=== PATIENT | female | born 1955 | race Caucasian/White ===

== ENCOUNTER 2019-05-20 00:09 | Emergency (ER) | payer OTHER, SELFPAY ==
[2019-05-20] VITALS (7 sets, daily range): BP systolic 98–140; BP diastolic 62–75; PULSE 74–100; RESP 16–18; TEMP 36.6–37.5; O2SAT 97–100
--- NOTE | 2019-05-20 02:21 | ED.NAVMDI ---
HPI - Nausea/Vomiting/Diarrhea General Chief complaint: Nausea/Vomiting/Diarrhea Stated complaint: VOMITING. Time Seen by Provider: 05/20/19 02:02 Source: patient and family Mode of arrival: ambulatory Limitations: no limitations History of Present Illness HPI Narrative: Patient presented for evaluation of vomiting. Patient reports nausea and vomiting over the past 24 to 48 hours. She denies any head, chest or abdominal pain. She does report cough, denies fever. Patient states she has been in contact with many people who were sick at her office with influenza. Patient also reports malodorous urine with frequency, denies dysuria, does report dark-colored urine. She denies abdominal pain or flank pain. Patient denies numbness, reports she feels mildly weak, but reports she has been walking normally. Related Data Home Medications Medication Instructions Recorded Confirmed cefdinir 300 mg capsule 300 mg PO BID cap 04/11/19 naproxen sodium 220 mg capsule 440 mg PO Q12H PRN cap 04/11/19 pravastatin 40 mg tablet 40 mg PO DAILY 04/11/19 ranitidine HCl 150 mg tablet 150 mg PO BID tablet 04/11/19 zolmitriptan 5 mg tablet 5 mg PO ONCE 04/11/19 Allergies Allergy/AdvReac Type Severity Reaction Status Date / Time nitrofurantoin Allergy Unknown Verified 09/23/17 11:31 Sulfa (Sulfonamide Allergy Unknown Unknown Verified 09/23/17 11:30 Antibiotics) Review of Systems Review of Systems: Narrative: CONSTITUTIONAL: Denies fever, chills, or sweats. EYES: Denies visual changes, redness, or discharge. ENT: Denies rhinorrhea, reports congestion CARDIOVASCULAR: Denies chest pain, palpitations, or edema. RESPIRATORY:Reports cough, denies dyspnea GASTROINTESTINAL: Denies abdominal pain, reports nausea and vomiting, denies diarrhea GENITOURINARY: Reports frequency, reports malodorous urine SKIN: Denies rash or itching. MUSCULOSKELETAL: Denies back pain, joint pain, or myalgia. NEUROLOGIC: Denies headache, numbness, or weakness. All systems reviewed & are unremarkable except as noted in HPI and below [facility] Past Medical History Medical History (Updated 05/20/19 @ 04:39 by Manisha Sutton MD) Colitis GERD (gastroesophageal reflux disease) Heart murmur History of radiation therapy Hyperlipidemia Hypothyroid IBS (irritable bowel syndrome) Post-menopausal Skin cancer Surgical History Surgical History (Updated 05/20/19 @ 02:23 by Dinorah Garrido) H/O local excision of skin lesion Right foot, nose History of tonsillectomy Family History Family History Mother Hypertension Social History Social History (Updated 05/20/19 @ 02:25 by Dinorah Garrido) Smoking packs per day: 0.5 Smoking cigarettes per day: 10.0 Years smoked: 10 Smoking pack-years: 5.00 Smoking status: Former smoker Second hand tobacco smoke exposure: No Smoking end date: 04/12/90 Alcohol intake: current Gender identity (if verbalized by the patient): Female Exam Narrative: Exam Narrative: GENERAL: Well-appearing, well-nourished, and in no acute distress. HEAD: Normocephalic, atraumatic. EYES: PERRLA and EOMI. ENT: Nares clear, no rhinorrhea or epistaxis. Mucous membranes moist. NECK: Supple. CHEST: Clear to auscultation. No respiratory distress. HEART: Regular rate and rhythm. No murmur heard. Normal peripheral pulses. ABDOMEN: Soft, nontender, nondistended, normal active bowel sounds. EXTREMITIES: Normal range of motion. No edema. SKIN: Warm, dry, no rash. NEURO: No focal deficits. Alert and oriented X3. Course Course Emergency Course: Patient presents for evaluation of nausea and vomiting. No pain to speak of on exam. Vital signs are stable. Patient is orthostatic positive. She is positive for influenza A, urinalysis is also reflective of UTI. Patient without flank pain, no history of nephrolithiasis. I doubt pyelonephritis based on clinical symptoms. Patient was rehydrated wi
[2019-05-20 03:10] LABS: Basophils Percent Auto 0.2 % (0.2-1.2); Hematocrit 37.2 % (37.0-47.0); Hemoglobin 12.3 g/dL (12.0-15.0); Immature Granulocyte Absolute 0.01 K/mm3 (0.00-0.031); Immature Granulocyte Percent A 0.2 % (0-0.5); Lymphocytes Absolute Auto 0.91 K/mm3 (0.9-3.2); Lymphocytes Percent Auto 17.5 % (18.3-44.2); Mean Corpuscular HGB Conc 33.1 g/dl (32-36); Mean Corpuscular Hemoglobin 28.8 pg (26-34); Mean Corpuscular Volume 87.1 fl (80-100); Mean Platelet Volume 10.5 fl (7.4-10.4); Monocytes Absolute Auto 0.4 K/mm3 (0.1-0.6); Monocytes Percent Auto 8.5 % (2.6-8.5); Neutrophils Absolute Auto 3.8 K/mm3 (1.3-6.7); Neutrophils Percent Auto 73.6 % (45.5-73.1); Platelet Count Result 306 k/mm3 (150-375); Red Blood Count 4.27 M/mm3 (4.2-5.4); Red Cell Distribution Width 13.1 % (11.5-14.5); White Blood Count 5.2 K/mm3 (4.5-10.0)
[2019-05-20 03:23] LABS: Alanine Aminotransferase 28 U/L (4-35); Albumin Level 4.1 g/dL (3.5-5.1); Alkaline Phosphatase 77 U/L (38-126); Aspartate Amino Transferase 32 U/L (14-36); Bilirubin,Total 0.6 mg/dL (0.2-1.3); Blood Urea Nitrogen 12 mg/dL (7-17); Calcium 9.5 mg/dL (8.4-10.2); Carbon Dioxide 26 mmol/L (22-30); Chloride 91 mmol/L (98-107); Estimated CRCL calculation 56 ml/min; Estimated Glomerular Filt Rate > 60; Glucose 105 mg/dL (65-105); Lipase 57 U/L (23-300); Potassium 4.3 mmol/L (3.4-5.0); Sodium 131 mmol/L (137-145)
[2019-05-20 03:40] LABS: Add Urine Microscopic? YES; Appearance Urine Cloudy (Clear); Bacteria Urine Trace /hpf; Bilirubin Urine Negative (Negative); Blood Urine 1+ (Negative); Color Urine Yellow (Yellow); Glucose Urine UA Negative (Negative); Ketones Urine 2+ mg/dL (Negative); Leukocyte Esterase Ur 3+ LEU/UL (Negative); Mucus Urine Rare /lpf; Nitrate Urine Negative (Negative); Protein Urine 1+ mg/dL (Negative); Specific Grav Ur 1.014 (1.001-1.035); Squamous Epithelial Cell Urine Few /hpf (Few); Urobilinogen Urine Negative mg/dL (<2.0); WBC Urine >75 /hpf
[2019-05-20] MEDS: SODIUM CHLORIDE 0.9% IV 2,000 ML 999 ML (04:38)
[2019-05-20] MEDS: ONDANSETRON INJ 4 MG/2 ML VIAL IV PUSH (04:39)
== END 2019-05-20 06:35 | disposition home or self-care (01) ==
PROVIDERS: Emergency Provider Emergency Medicine; PCP Family Medicine
DX: J10.1 Influenza due to other identified influenza virus with other respiratory manifestations (principal); N39.0 Urinary tract infection, site not specified; E86.0 Dehydration; K21.9 Gastro-esophageal reflux disease without esophagitis; E78.5 Hyperlipidemia, unspecified; E03.9 Hypothyroidism, unspecified; K58.9 Irritable bowel syndrome, unspecified; Z85.828 Personal history of other malignant neoplasm of skin; Z92.3 Personal history of irradiation; Z87.891 Personal history of nicotine dependence
CPT/HCPCS: 36415; 80053; 81001; 83690; 85025; 87077; 87086; 87088; 87186; 87804; 96361; 96365; 96375; 99284; J0696; J2405; J7030

== ENCOUNTER → 2020-02-23 11:07 | Outpatient (CLI) | payer OTHER, SELFPAY ==
--- NOTE | ~2020-02-23 | DEXA_ITS ---
Bone Density Report Name: Sangeetha Beth Age: 64 Sex: Female Ethnicity: White Date of : 1955 Indication: postmenopausal; screening for osteoporosis; parental hip fracture; Referring Provider: Melissa Bragg Study: Bone densitometry was performed. Exam Date: February 23, 2020 Accession number: [id number] Bone Density: Region BMD T-score Z-score Classification AP Spine (L1-L4) 0.917 -1.2 0.6 Osteopenia Femoral Neck (Left) 0.665 -1.7 -0.2 Osteopenia Total Hip (Left) 0.870 -0.6 0.6 Normal Femoral Neck (Right) 0.685 -1.5 0.0 Osteopenia Total Hip (Right) 0.819 -1.0 0.2 Normal Total Hip Mean 0.845 -0.8 0.4 Normal World Health Organization criteria for BMD impression classify patients as: Normal (T-score at or above -1.0), Osteopenia (T-score between -1.0 and -2.5), or Osteoporosis (T-score at or below -2.5). 10-year Fracture Risk(1): Major Osteoporotic Fracture 18% Hip Fracture 1.1% Reported Risk Factors: [place] (), Neck BMD=0.665, BMI=25.3, parental fracture (1) FRAX(R) Version 3.08. Fracture probability calculated for an untreated patient. Fracture probability may be lower if the patient has received treatment. Previous Exams: Region Exam Age BMD T-score BMD Change BMD Change Date g/cm2 vs Baseline vs Previous AP Spine(L1-L4) 02/23/2020 64 0.917 -1.2 -0.106* -0.036* 08/21/2013 58 0.952 -0.9 -0.070* 0.007 09/19/2007 52 0.945 -0.9 -0.078* -0.078* 11/27/2005 50 1.023 -0.2 Total Hip(Left) 02/23/2020 64 0.870 -0.6 -0.157* 0.023 08/21/2013 58 0.847 -0.8 -0.180* -0.080* 09/19/2007 52 0.927 -0.1 -0.100* -0.100* 11/27/2005 50 1.027 0.7 Total Hip(Right) 02/23/2020 64 0.819 -1.0 -0.170* -0.009 08/21/2013 58 0.828 -0.9 -0.160* -0.084* 09/19/2007 52 0.911 -0.3 -0.077* -0.077* 11/27/2005 50 0.988 0.4 *Denotes significance at 95% confidence level, LSC for AP Spine = 0.022 g/cm2, LSC for Total Hip = 0.027 g/cm2 Clinical Information Provided by Patient: Parent has had a hip fracture Has used the following medications: Vitamin D, LEVOTHYROXIN Patient maximum height was 65 Menopause Age: 49 No regular weight bearing exercise Drinks caffeinated beverages Onset of menses at age 12 Number of children 2 Impression: The chanell
--- NOTE | ~2020-02-23 | MM_ITS ---
EXAMINATION: MM screening [facility] BI w yuly HISTORY: Screening mammogram TECHNIQUE: Craniocaudal and mediolateral oblique 3-D tomosynthesis images were obtained and synthetic 2-D images were generated. CAD analysis was submitted and interpreted. COMPARISON: 05/01/1915, 08/21/2013 BREAST PARENCHYMAL COMPOSITION: There are scattered areas of fibroglandular density. FINDINGS: There is no evidence of suspicious mass, calcification, or architectural distortion to sugg est malignancy in either breast. There has been no suspicious interval change. IMPRESSION: 1. No mammographic evidence of malignancy. 2. Recommend routine screening mammography in one year. BI-RADS Category 1: Negative Reviewed, dictated and finalized at location A. ERCIAL LOAN REVIEWER
== END ==
PROVIDERS: Visit Provider Family Medicine
DX: Z12.31 Encounter for screening mammogram for malignant neoplasm of breast (principal); Z78.0 Asymptomatic menopausal state; M85.88 Other specified disorders of bone density and structure, other site; M85.852 Other specified disorders of bone density and structure, left thigh; M85.851 Other specified disorders of bone density and structure, right thigh
CPT/HCPCS: 77063; 77067; 77080

== ENCOUNTER → 2021-05-28 11:18 | Outpatient (CLI) | payer OTHER, SELFPAY ==
--- NOTE | ~2021-05-28 | XR_ITS ---
XR foot RT 2V DATE: 05/28/2021 11:52 INDICATION: Right foot pain TECHNIQUE: AP and lateral views COMPARISON: None FINDINGS: There is hallux valgus and bunion deformity. No fracture or dislocation, periosteal reaction or bone destruction. No erosive change. Prominent plantar calcaneal enthesopathy without erosive change or periostitis. IMPRESSION: Hallux valgus and bunion deformity Plantar calcaneal enthesopathy Reviewed, dictated and finalized at location B. GING CRANE OPERATOR
--- NOTE | ~2021-05-28 | XR_ITS ---
XR ankle RT 2V DATE: 05/28/2021 11:52 INDICATION: Right ankle pain TECHNIQUE: AP and lateral views COMPARISON: None FINDINGS: There is prominent plantar calcaneal enthesopathy without erosive change or periostitis. No fracture or dislocation of the ankle or disruption of the ankle mortise. No periosteal reaction or bone destruction. IMPRESSION: Calcaneal enthesopathy Reviewed, dictated and finalized at location B. TARY INSPECTOR IMPRESSION: Calcaneal enthesopathy
== END ==
PROVIDERS: PCP Physician Assistant; Visit Provider Physician Assistant
DX: M77.31 Calcaneal spur, right foot (principal); M20.11 Hallux valgus (acquired), right foot; M21.611 Bunion of right foot
CPT/HCPCS: 73600; 73620

== ENCOUNTER → 2021-11-04 14:58 | Outpatient (CLI) | payer OTHER, SELFPAY ==
--- NOTE | ~2021-11-04 | MM_ITS ---
EXAMINATION: MM screening [facility] BI w yuly HISTORY: Screening mammogram TECHNIQUE: Craniocaudal and mediolateral oblique 3-D tomosynthesis images were obtained and synthetic 2-D images were generated. Bilateral rotated lateral CC views. CAD analysis was submitted and interp reted. COMPARISON: 02/23/2020, 05/10/2015, 08/21/2013 bilateral screening mammogram examinations BREAST PARENCHYMAL COMPOSITION: There are scattered areas of fibroglandular density. FINDINGS: There is no evidence of suspicious mass, calcification, or architectural distortion to sugg est malignancy in either breast. There has been no suspicious interval change. IMPRESSION: 1. No mammographic evidence of malignancy. 2. Recommend routine screening mammography in one year. BI-RADS Category 1: Negative Reviewed, dictated and finalized at location A.
== END ==
PROVIDERS: PCP Family Medicine; Visit Provider Physician Assistant
DX: Z12.31 Encounter for screening mammogram for malignant neoplasm of breast (principal)
CPT/HCPCS: 77063; 77067

== ENCOUNTER 2021-12-06 09:58 | Outpatient (CLI) | payer OTHER, SELFPAY ==
--- NOTE | 2021-12-06 10:15 | ECG_ITS ---
Measurements Intervals [place] Rate: 57 P: 21 [place]: 164 QRS: 24 QRSD: 99 T: 30 QT: 392 QTc: 385 Interpretive Statements SINUS BRADYCARDIA POSSIBLE INFERIOR MYOCARDIAL INFARCTION, AGE UNDETERMINED ABNORMAL ECG NO PREVIOUS ECG AVAILABLE FOR COMPARISON Electronically Signed On 12-06-2021 17:21:46 CDT by Alex Rodriguez M.D.
== END 2021-12-06 09:59 | disposition home or self-care (01) ==
LOC: ANHCARD 10:00
PROVIDERS: PCP Family Medicine; Visit Provider Physician Assistant Medical
DX: R42 Dizziness and giddiness (principal); R00.1 Bradycardia, unspecified
CPT/HCPCS: 93005

== ENCOUNTER 2022-05-20 16:21 | Outpatient (CLI) | payer OTHER, SELFPAY ==
--- NOTE | ~2022-05-20 | DEXA_ITS ---
Bone Density Report Name: BETHANY FINN Age: 67 Sex: Female Ethnicity: White Date of : 1955 Indication: osteopenia; hyperparathyroidism; parental hip fracture; height loss; prior fracture; postmenopausal Referring Provider: SAMEERA SILVER Study: Bone densitometry was performed. Exam Date: May 20, 2022 Accession number: [id number] Bone Density: Region BMD T-score Z-score Classification AP Spine (L1-L4) 0.902 -1.3 0.6 Osteopenia Femoral Neck (Left) 0.680 -1.5 0.1 Osteopenia Total Hip (Left) 0.835 -0.9 0.5 Normal Femoral Neck (Right) 0.680 -1.5 0.1 Osteopenia Total Hip (Right) 0.827 -0.9 0.4 Normal Total Hip Mean 0.831 -0.9 0.5 Normal World Health Organization criteria for BMD impression classify patients as: Normal (T-score at or above -1.0), Osteopenia (T-score between -1.0 and -2.5), or Osteoporosis (T-score at or below -2.5). 10-year Fracture Risk(1): Major Osteoporotic Fracture 26% Hip Fracture 2.5% Reported Risk Factors: [place] (), Neck BMD=0.680, BMI=27.9, previous fracture, parental fracture (1) FRAX(R) Version 3.08. Fracture probability calculated for an untreated patient. Fracture probability may be lower if the patient has received treatment. Previous Exams: Region Exam Age BMD T-score BMD Change BMD Change Date g/cm2 vs Baseline vs Previous AP Spine(L1-L4) 05/20/2022 67 0.902 -1.3 -0.121* -0.015 02/23/2020 64 0.917 -1.2 -0.106* -0.036* 08/21/2013 58 0.952 -0.9 -0.070* 0.007 09/19/2007 52 0.945 -0.9 -0.078* -0.078* 11/27/2005 50 1.023 -0.2 Total Hip(Left) 05/20/2022 67 0.835 -0.9 -0.192* -0.035* 02/23/2020 64 0.870 -0.6 -0.157* 0.023 08/21/2013 58 0.847 -0.8 -0.180* -0.080* 09/19/2007 52 0.927 -0.1 -0.100* -0.100* 11/27/2005 50 1.027 0.7 Total Hip(Right) 05/20/2022 67 0.827 -0.9 -0.161* 0.009 02/23/2020 64 0.819 -1.0 -0.170* -0.009 08/21/2013 58 0.828 -0.9 -0.160* -0.084* 09/19/2007 52 0.911 -0.3 -0.077* -0.077* 11/27/2005 50 0.988 0.4 *Denotes significance at 95% confidence level, LSC for AP Spine = 0.022 g/cm2, LSC for Total Hip = 0.027 g/cm2 Clinical Information Provided by Patient: Has had a low trauma fracture Parent has had a hip fracture Has used the following medications: Vitami
== END 2022-05-20 16:22 ==
LOC: MICIMG 16:22
PROVIDERS: PCP Family Medicine; Visit Provider Physician Assistant Medical
DX: M85.88 Other specified disorders of bone density and structure, other site (principal); M85.852 Other specified disorders of bone density and structure, left thigh; M85.851 Other specified disorders of bone density and structure, right thigh
CPT/HCPCS: 77080

== ENCOUNTER → 2022-11-27 07:47 | Outpatient (CLI) | payer OTHER, SELFPAY ==
--- NOTE | ~2022-11-27 | US_ITS ---
EXAMINATION: US renal BI DATE: 11/27/2022 08:14 INDICATION: Acute renal failure TECHNIQUE: Multiple ultrasound grayscale images of the kidneys were obtained. COMPARISON: 08/14/2018 FINDINGS: The right kidney measures 9.6 x 4.7 x 4.8 cm. The left kidney measures 7.9 x 2.9 x 3.7 cm. The kidney s demonstrate normal echogenicity. There is no hydronephrosis in either kidney. No stones identified . The bladder is normal. IMPRESSION: 1. Normal kidneys without hydronephrosis. Reviewed, dictated and finalized at location A.
== END ==
PROVIDERS: PCP Family Medicine; Visit Provider Physician Assistant Medical
DX: N17.9 Acute kidney failure, unspecified (principal)
CPT/HCPCS: 76775

== ENCOUNTER → 2023-06-09 14:51 | Outpatient (CLI) | payer OTHER, SELFPAY ==
--- NOTE | ~2023-06-09 | MM_ITS ---
EXAMINATION: MM screening [facility] BI w yuly HISTORY: Screening TECHNIQUE: Craniocaudal and mediolateral oblique 3-D tomosynthesis images were obtained and synthetic 2-D images were generated. CAD analysis was submitted and interpreted. COMPARISON: Comparison to multiple prior studies sequentially, with oldest reviewed study dated 08/21. BREAST PARENCHYMAL COMPOSITION: Not dense: There are scattered areas of fibroglandular density. FINDINGS: Breast asymmetries are stable. There is no evidence of suspicious mass, calcification, or a rchitectural distortion to suggest malignancy in either breast. There has been no suspicious interval change. IMPRESSION: 1. No mammographic evidence of malignancy. 2. Recommend routine screening mammography in one year. BI-RADS Category 1: Negative Reviewed, dictated and finalized at location A. RICT [employer] DISTRICT OFFICE DIRECTOR
== END ==
PROVIDERS: PCP Physician Assistant Medical; Visit Provider Physician Assistant Medical
DX: Z12.31 Encounter for screening mammogram for malignant neoplasm of breast (principal)
CPT/HCPCS: 77063; 77067

== ENCOUNTER 2023-12-22 15:33 | Outpatient (CLI) | payer OTHER, SELFPAY ==
[2023-12-22 16:20] LABS: Influenza A QL RT-PCR Negative (Negative); Influenza B QL RT-PCR Negative (Negative); RSV RNA, RT-PCR Negative (Negative); SARS-CoV-2 RNA PCR Positive (Negative)
== END 2023-12-22 15:34 | disposition home or self-care (01) ==
LOC: ANHLAB 15:35
PROVIDERS: PCP Family Medicine; Visit Provider Family Medicine
DX: J06.9 Acute upper respiratory infection, unspecified (principal); U07.1 COVID-19
CPT/HCPCS: 87637

== ENCOUNTER 2024-08-07 12:08 | Outpatient (CLI) | payer MEDICARE, SELFPAY ==
--- NOTE | ~2024-08-07 | DEXA_ITS ---
Bone Density Report Name: BETHANY FINN Age: 69 Sex: Female Ethnicity: White Date of : 1955 Indication: postmenopausal; screening for osteoporosis; parental hip fracture; height loss; Referring Provider: EDWIN PATTERSON Study: Bone densitometry was performed. Exam Date: August 07, 2024 Accession number: [id number] Bone Density: Region BMD T-score Z-score Classification AP Spine(L1-L4) 0.906 -1.3 0.8 Osteopenia Femoral Neck (Left) 0.690 -1.4 0.3 Osteopenia Total Hip (Left) 0.889 -0.4 1.0 Normal Femoral Neck (Right) 0.652 -1.8 0.0 Osteopenia Total Hip (Right) 0.889 -0.4 1.0 Normal Total Hip Mean 0.889 -0.4 1.0 Normal World Health Organization criteria for BMD impression classify patients as: Normal (T-score at or above -1.0), Osteopenia (T-score between -1.0 and -2.5), or Osteoporosis (T-score at or below -2.5). 10-year Fracture Risk(1): Major Osteoporotic Fracture 17% Hip Fracture 3.1% Reported Risk Factors: [place] (), Neck BMD=0.652, BMI=27.8, parental fracture (1) FRAX(R) Version 3.08. Fracture probability calculated for an untreated patient. Fracture probability may be lower if the patient has received treatment. Clinical Information Provided by Patient: Parent has had a hip fracture Has used the following medications: Boniva (i.e. ibandronate), HRT (i.e. estrogen/hormone therapy), Vitamin D, Calcium Patient maximum height was 65.0 Menopause Age: 49 Drinks caffeinated beverages Onset of menses at age 11 Number of children 2 Impression: The patient has low bone mass, based on the Right Femoral Neck T-score. The patient has an estimated ten-year risk of hip fracture of 3.1% and an estimated ten-year risk of major fracture of 17%, based on the WHO FRAX algorithm. The patient has risk factors, including: parental hip fracture. Discussion: BONE DENSITY IS LOW AT ONE OR MORE SKELETAL SITES. THE PATIENT'S BMD AND CLINICAL RISK FACTORS CONTRIBUTE TO THIS PATIENT'S INCREASED RISK OF FRACTURE. This patient's lowest T-score is low at one or more skeletal sites. It meets the World Health Organization's (WHO) criteria for ?low bone mass? (T-score between -1.0 and -2.5). The patient's 10-year risk of hip fracture as calculated by FRAX exceeds the threshold where pharmacological therapy is recommended by the National Osteoporosis Foundation (NOF). However, all treatment decisions require clinical judgment and consideration of individual patient factors, including patient preferences, comorbidities, previous drug use, risk factors not captured in the FRAX model (e.g., frailty, falls, vitamin D deficiency, increased bone turnover, interval significant decline in bone density) and possible under or overestimation of fracture risk by FRAX. The patient should follow a healthful lifestyle (good nutrition with adequate calcium and vitamin D, and appropriate weight-bearing exercise). Follow-Up: Consider a repeat BMD and Vertebral Fracture Assessment (VFA) exam in 2 years or sooner if medically necessary, to reassess this patient's status. Reported by: JESSICA on 08/07/2024 12:39:00 PM. Reviewed, dictated and finalized at location ABlanca GARCIA
== END 2024-08-07 12:09 | disposition home or self-care (01) ==
LOC: ANHIMG 12:09
PROVIDERS: PCP Family Medicine; Visit Provider Student in an Organized Health Care Education/Training Program
DX: Z78.0 Asymptomatic menopausal state (principal); M85.88 Other specified disorders of bone density and structure, other site; M85.852 Other specified disorders of bone density and structure, left thigh; M85.851 Other specified disorders of bone density and structure, right thigh
CPT/HCPCS: 77080

== ENCOUNTER 2024-11-21 09:06 | Outpatient (RCR) | payer MEDICARE, SELFPAY ==
[2024-11-21 09:35] VITALS: BMI 28.5
[2024-11-21 10:24] VITALS: BMI 28.5
--- NOTE | 2024-11-21 10:41 | PCDIET ---
Nutrition consult complete. RAFITA
== END 2025-02-12 09:57 | disposition home or self-care (01) ==
LOC: ANHDMC 09:06
PROVIDERS: PCP Family Medicine; Visit Provider Internal Medicine Nephrology
DX: N18.32 Chronic kidney disease, stage 3b (principal); Z71.3 Dietary counseling and surveillance
CPT/HCPCS: 97802

== ENCOUNTER 2024-11-23 14:28 | Outpatient (CLI) | payer MEDICARE, SELFPAY ==
--- NOTE | ~2024-11-23 | MM_ITS ---
EXAMINATION: MM screening [facility] BI w yuly HISTORY: Screening TECHNIQUE: Craniocaudal and mediolateral oblique 3-D tomosynthesis images were obtained and synthetic 2-D images were generated. CAD analysis was submitted and interpreted. COMPARISON: Comparison to multiple prior studies sequentially, with oldest reviewed study dated 05/10. BREAST PARENCHYMAL COMPOSITION: Not dense: There are scattered areas of fibroglandular density. FINDINGS: There is no evidence of suspicious mass, calcification, or architectural distortion to sugg est malignancy in either breast. There has been no suspicious interval change. IMPRESSION: 1. No mammographic evidence of malignancy. 2. Recommend routine screening mammography in one year. BI-RADS Category 1: Negative Reviewed, dictated and finalized at location A.
== END 2024-11-23 14:29 | disposition home or self-care (01) ==
LOC: MICIMG 14:29
PROVIDERS: PCP Family Medicine; Visit Provider Student in an Organized Health Care Education/Training Program
DX: Z12.31 Encounter for screening mammogram for malignant neoplasm of breast (principal)
CPT/HCPCS: 77063; 77067

== ENCOUNTER 2025-01-24 11:58 | Inpatient (IN) | payer MEDICARE, SELFPAY ==
[2025-01-24] VITALS (19 sets, daily range): BP systolic 104–158; BP diastolic 52–86; PULSE 47–82; RESP 12–20; TEMP 36.3–36.8; O2SAT 97–100; BMI 28.2
--- NOTE | 2025-01-24 | ECHO_ITS ---
Patient Info Name: Sangeetha Beth Age: 69 years : 1955 Gender: Female Ht: 64 in Wt: 169 lbs BSA: 1.88 m2 HR: 56 bpm BP: 125 / 65 mmHg Heart Rhythm: Sinus Rhythm Technical Quality: Fair Exam Date: 01/24/2025 2:52 PM Patient Status: I Admit Date: 01/24/2025 Exam Type: CA echo doppler color flow Complete two-dimensional, color flow and Doppler transthoracic echocardiogram is performed with contrast to opacify the left ventricle and to improve the deliniation of the left ventricle endocardial borders. Staff Referring Physician: Zacarias Eaton [employer] Law Clerk: Jeny Martinez Attending Provider: Steven Dupont MD Contrast/Agitated Saline Contrast/Ag. Saline: Definity Amount: 2.00 ml Administered By: Jeny Martinez Existing IV Access: Yes IV Access Condition: patent with no signs of infiltration Summary 1. Definity contrast administered improved wall motion interpretation. 2. Left ventricular chamber dimension is normal. 3. Left ventricular systolic function is normal, estimated at 60-65. 4. The left ventricular diastolic function is normal. 5. E/e' 9 is minimally elevated. 6. Left atrial chamber dimension is mildly enlarged. 7. Right atrial chamber dimension is mildly enlarged. 8. There is trace mitral valve regurgitation. 9. No pulmonary hypertension, estimated pulmonary arterial systolic pressure is 23 mmHg. Left Ventricle E/e' 9 is minimally elevated. Left ventricular chamber dimension is normal. Left ventricular systolic function is normal, estimated at 60-65. The left ventricular diastolic function is normal. Definity contrast administered improved wall motion interpretation. Right Ventricle Right ventricular chamber dimension is normal. Right ventricular systolic function is normal and with normal TAPSE 2.4 cm. Left Atria Left atrial chamber dimension is mildly enlarged. Right Atria Right atrial chamber dimension is mildly enlarged. Aortic Valve The aortic valve is trileaflet. There is no aortic valve stenosis. There is no aortic valve regurgitation. Pulmonic Valve There is no pulmonic regurgitation. Mitral Valve There is no mitral valve stenosis. There is trace mitral valve regurgitation. Tricuspid Valve There is no tricuspid valve regurgitation. No pulmonary hypertension, estimated pulmonary arterial systolic pressure is 23 mmHg. Pericardium/Pleural There is no pericardial effusion. Inferior Vena Cava Normal inferior vena cava with >50% collapse upon inspiration consistent with normal right atrial pressure, 5 mmHg. Aorta The aortic root size at the sinus of Valsalva is normal. Left Ventricular Outflow Tract Name Value Normal LVOT 2D LVOT Diameter 2.0 cm LVOT Doppler LVOT Peak Velocity 123 cm/s LVOT Peak Gradient 6 mmHg LVOT Mean Gradient 2 mmHg LVOT VTI 25 cm LVOT VTI/AV VTI Ratio 0.8 LVOT Stroke Volume 80 ml LVOT CO 4.0 l/min LVOT CI 2.1 l/min/m2 Pulmonic Valve Name Value Normal RVOT Doppler RVOT Peak Velocity 69 cm/s RVOT Peak Gradient 2 mmHg PV Doppler PV Peak Velocity 81 cm/s PV Peak Gradient 3 mmHg Mitral Valve Name Value Normal MV Diastolic Function MV E Peak Velocity 82 cm/s MV A Peak Velocity 73 cm/s MV E/A 1.1 MV Decel Time (PW) 208 ms MV Annular TDI MV E/e' (Septal) 12.9 MV E/e' (Lateral) 7.8 MV E/e' (Average) 10.3 Tricuspid Valve Name Value Normal TV Regurgitation Doppler TR Peak Velocity 215 cm/s TR Peak Gradient 18 mmHg Estimated PAP/RSVP RA Pressure 5 mmHg <=5 PA Systolic Pressure 23 mmHg <36 RV Systolic Pressure 23 mmHg <36 TV Annular TDI TV Lateral Betzaida s' Velocity 11.8 cm/s >=9.5 Aorta Name Value Normal Ascending Aorta Ao Root Diameter (MM) 2.7 cm Ao Root Diam Index (MM) 1.4 cm/m2 Aortic Valve Name Value Normal AV Doppler AV Peak Velocity 141 cm/s AV Peak Gradient 8 mmHg AV Mean Gradient 4 mmHg AV VTI 32 cm AV Area (Cont Eq VTI) 2.5 cm2 >=3.0 AV Area (Cont Eq Twin) 2.8 cm2 AV DI (Twin) 0.87 AV Regurgitation 2D LVOT Area 3.2 cm2 Ventricles Name Value Normal LV Dimensions 2D/MM IVS Diastolic Thickness (2D) 0.9 cm 0.6-1.0 LVID Diastole (2D) 4.6 cm 3.8-5.2 LVIW Diastolic Thickness (2D) 0.8 cm 0.6-0.9 LVID Systole (2D) 3.0 cm 2.2-3.5 LVOT Diameter 2.0 cm LV Mass (2D Cubed) 129.12 g 67.00-162.00 LV Mass Index (2D Cubed) 69 g/m2 43-95 Relative Wall Thickness (2D) 0.34 <=0.42 LV Fractional Shortening/Ejection Fraction 2D/MM LV Fractional Shortening (2D) 35 % 27-45 LV EF (2D Teichholz) 64 % LV Diastolic Volume (4C MOD) 80 ml LV EF (4C MOD) 71 % LV Diastolic Volume (2C MOD) 72 ml LV EF (2C MOD) 70 % LV Diastolic Volume (BP MOD) 80 ml 46-106 LV Diastolic Volume Index (BP MOD) 42 ml/m2 29-61 LV Systolic Volume (BP MOD) 23 ml 14-42 LV Systolic Volume Index (BP MOD) 12 ml/m2 8-24 LV EF (BP MOD) 71 % 54-74 LV Diastolic Length (4C) 7.9 cm LV Systolic Length (4C) 5.6 cm LV Stroke Volume (4C MOD) 57 ml Atria Name Value Normal LA Dimensions LA Dimension (MM) 3.6 cm 2.7-3.8 LA Volume (4C A-L) 50 ml LA Volume (BP A-L) 41 ml RA Dimensions RA Area (4C) 17.4 cm2 <=18.0 Report Signatures
--- NOTE | ~2025-01-24 | XR_ITS ---
EXAMINATION: XR chest 2V, 01/24/2025 12:30 CDT HISTORY: CP FRONTAL WALL W/MIGRAINE TODAY HX HBP MEDS COMPARISON: No comparisons available. Technique: 2 views obtained. Findings: The lungs are clear, no effusion. No pneumothorax. Heart is normal size. Mediastinal and hilar contours are within normal limits. Bony thorax no acute abnormality. Impression: No acute cardiopulmonary abnormality. Reviewed, dictated and finalized at location P. Impression: No acute cardiopulmonary abnormality.
--- NOTE | 2025-01-24 12:34 | ECG_ITS ---
Test Date: 2025-01-24 12:08:01 Measurements Intervals [place] Rate: 55 P: 29 [place]: 166 QRS: 13 QRSD: 102 T: 24 QT: 414 QTc: 398 Interpretive Statements SINUS BRADYCARDIA INCOMPLETE RIGHT BUNDLE BRANCH BLOCK BORDERLINE ST-T WAVE ABNORMALITY- ANTERIOR LEADS BASELINE ARTIFACT- I, II, III, AVR, AVL, AVF, V4 BORDERLINE ECG No previous ECG available for comparison Electronically Signed On 01-24-2025 14:16:27 CDT by Curt Michael D.O.
[2025-01-24 12:48] LABS: Hematocrit 37.8 % (37.0-47.0); Hemoglobin 12.3 g/dL (12.0-15.0); Immature Granulocyte Percent A 0.4 % (0-0.5); Lymphocytes Absolute Auto 2.23 K/mm3 (0.9-3.2); Mean Corpuscular HGB Conc 32.5 g/dl (32-36); Mean Corpuscular Hemoglobin 29.4 pg (26-34); Mean Corpuscular Volume 90.4 fl (80-100); Nucleated Red Blood Cells Absolute Auto 0.000 K/mm3 (0.0-0.012); Nucleated Red Blood Cells Perc 0.0 % (0.0-0.2); Platelet Count Result 292 k/mm3 (150-375); Red Blood Count 4.18 M/mm3 (4.2-5.4); White Blood Count 6.9 K/mm3 (4.5-10.0)
[2025-01-24] MEDS: ASPIRIN 81 MG CHEWABLE TABLET 324 MG PO (12:58)
[2025-01-24 13:02] LABS: INR 1.0; Prothrombin Time 13.6 Seconds (11.1-14.7)
[2025-01-24 13:03] LABS: Partial Thromboplastin Time 33.5 Seconds (22.3-36.8)
[2025-01-24 13:12] LABS: Alanine Aminotransferase 21 U/L (6-35); Albumin Level 4.1 g/dL (3.5-5.1); Alkaline Phosphatase 94 U/L (38-126); Anion Gap 9 mmol/L (4-12); Aspartate Amino Transferase 32 U/L (14-36); Bilirubin,Total 0.8 mg/dL (0.2-1.3); Blood Urea Nitrogen 17 mg/dL (7-17); Calcium 9.2 mg/dL (8.4-10.2); Carbon Dioxide 22 mmol/L (22-30); Chloride 98 mmol/L (98-107); Estimated Glomerular Filt Rate 31; Glucose 99 mg/dL (65-110); Lipase 86 U/L (23-300); Potassium 4.6 mmol/L (3.4-5.0); Sodium 129 mmol/L (137-145); Total Protein 7.0 g/dL (6.3-8.2)
[2025-01-24 13:22] LABS: Troponin I 0.064 ng/mL (0.000-0.034)
--- NOTE | 2025-01-24 13:29 | ECG_ITS ---
Test Date: 2025-01-24 14:49:29 Measurements Intervals [place] Rate: 50 P: 36 [place]: 167 QRS: 11 QRSD: 109 T: 29 QT: 449 QTc: 410 Interpretive Statements SINUS BRADYCARDIA INCOMPLETE RIGHT BUNDLE BRANCH BLOCK BASELINE ARTIFACT- I, II, III, AVR, AVL, AVF BORDERLINE ECG Compared to ECG 01/24/2025 12:08:01 NO SIGNIFICANT CHANGE Electronically Signed On 01-24-2025 16:07:55 CDT by Curt Michael D.O.
--- NOTE | 2025-01-24 13:51 | ED.CHESTPAIN ---
HPI - Chest Pain General Chief Complaint: Chest Pain Stated Complaint: chest pain last night Time Seen by Provider: 01/24/25 13:28 History of Present Illness HPI narrative: 69-year-old female with a past medical history including hypertension and CKD as well as remote smoking history. Shows has a history of mitral valve prolapse and GERD. No other cardiac history or cardiac anomalies. She presents to the emergency department today with chest pain. Patient states that last night in the middle of night she was having difficulty sleeping and she had the sudden onset of chest pain the last 2-3 hours. Left of center chest, sharp initially then followed by a dull pressure for several hours. Went away on its own so she did not think anything of it. Today while she was in the grocery store she had a recurrence of the same location and same type of pain lasted about an hour. No associated dyspnea, nausea, vomiting. She states she developed a headache afterwards which feels like her normal throbbing migraines. She takes migraine medications for this at home. On arrival to the emergency department her chest pain has resolved she denies any symptoms at this time. Has never had anything like this happened to her previously. No cardiac history such as heart attacks, coronary disease to her knowledge. She sees Dr. Michael from Cardiology and has had a previous echocardiogram. Related Data Home Medications ?Medication ?Instructions ?Recorded ?Confirmed ?Last Taken ?Type polyethylene glycol 3350 17 gram 17 g PO DAILY 12/01/21 01/24/25 01/24/25 History oral powder packet (Miralax) psyllium seed (sugar) oral powder 1 tbsp PO DAILY 12/01/21 01/24/25 01/24/25 History (Metamucil (sugar) oral powder) calcium 600 mg (as 1 tablet PO DAILY 01/11/23 01/24/25 01/24/25 History carbonate)-vitamin D3 20 mcg (800 unit) tablet Allergies Allergy/AdvReac Type Severity Reaction Status Date / Time nitrofurantoin Allergy Unknown Unknown Verified 01/24/25 15:59 Sulfa (Sulfonamide Allergy Unknown Unknown Verified 01/24/25 15:59 Antibiotics) Review of Systems Review of Systems: As reviewed above in HPI [facility] Past Medical History Medical History Dizziness History of radiation therapy Skin cancer Hypothyroid Post-menopausal GERD (gastroesophageal reflux disease) IBS (irritable bowel syndrome) Colitis Hyperlipidemia Surgical History Surgical History H/O local excision of skin lesion Right foot, nose History of tonsillectomy Family History Family History Mother Hypertension Skin cancer Father Lung cancer Throat cancer Social History Social History Smoking packs per day: 0.5 Smoking cigarettes per day: 10.0 Years smoked: 10 Smoking pack-years: 5.00 Smoking status: Former smoker Second hand tobacco smoke exposure: No Smoking end date: 04/12/90 Alcohol intake: never Substance use: never Substance use type: does not use Do You Feel Safe in your Home?: Yes Lack of Transportation: No Lack of Food: Never True Current Housing: I Have Housing Concerned About Future Housing: No Difficulty Paying Gas/Electric Bills: No Difficulty Paying for Meds: No Currently Unemployed: No Education: High School Diploma/GED Difficulty w/ Childcare or Family Care: No Living arrangements: with family Gender identity (if verbalized by the patient): Female Spiritual care concerns: No Agree to blood products: Yes Exam Narrative: GENERAL: [Well-appearing, well-nourished, and in no acute distress.] HEAD: [Normocephalic, atraumatic.] EYES: [PERRLA and EOMI.] ENT: Nares clear, no rhinorrhea or epistaxis. Mucous membranes moist. NECK: Supple. CHEST: [Clear to auscultation. No respiratory distress.] HEART: [Regular rate and rhythm]. No murmur heard. [Normal peripheral pulses.] ABDOMEN: [Soft, nondistended], [nontender], [No rigidity or guarding] EXTREMITIES: Normal range of motion. [No edema.] SKIN: Warm, dry, no rash. NEURO: [No focal deficits]. Alert and oriented [x3.] PSYCH: [Normal mood and affect.] Course Vital Signs Vital signs: Vital Signs Temperature 36.3 C L 01/24/25 11:58 Pulse Rate 59 L 01/24/25 11:58 Respiratory Rate 20 01/24/25 11:58 Blood Pressure 158/86 H 01/24/25 11:58 Pulse Oximetry 100 01/24/25 11:58 Oxygen Delivery Room Air 01/24/25 11:58 Temperature 36.3 C L 01/24/25 11:58 Pulse Rate 49 L 01/24/25 13:35 Respiratory Rate 12 01/24/25 13:02 Blood Pressure 136/78 01/24/25 13:02 Pulse Oximetry 100 01/24/25 13:02 Oxygen Delivery Room Air 01/24/25 13:01 MDM - Chest Pain MDM Narrative Medical decision making narrative: 69-year-old female with a past medical history including hypertension and CKD as well as remote smoking history. Shows has a history of mitral valve prolapse and GERD. No other cardiac history or cardiac anomalies. She presents to the emergency department today with chest pain. Patient states that last night in the middle of night she was having difficulty sleeping and she had the sudden onset of chest pain the last 2-3 hours. Left of center chest, sharp initially then followed by a dull pressure for several hours. Went away on its own so she did not think anything of it. Today while she was in the grocery store she had a recurrence of the same location and same type of pain lasted about an hour. No associated dyspnea, nausea, vomiting. She states she developed a headache afterwards which feels like her normal throbbing migraines. She takes migraine medications for this at home. On arrival to the emergency department her chest pain has resolved she denies any symptoms at this time. Has never had anything like this happened to her previously. No cardiac history such as heart attacks, coronary disease to her knowledge. She sees Dr. Michael from Cardiology and has had a previous echocardiogram. Patient does not appear in any acute distress. No ongoing chest pain at this time and just resolved prior to arrival to the ED. Mildly hypertensive, no tachycardia or tachypnea. Minor sinus bradycardia on the monitor. 100% on room air. No reproducible pain on palpation, clear breath sounds strong symmetric pulses throughout. Given patient's symptomatic complaints as well as risk factors concern for ACS is raised in addition to potential musculoskeletal chest pain, GERD, less likely thromboembolic disease such as PE. Cardiac workup at this time including chest x-ray, EKG, serial troponins ordered. Patient placed on gambling monitor and pulse oximetry. Patient's workup is showing elevated troponin double the upper limit of normal, no ongoing chest pain at this time but given the setting of chest pain possibility of ACS is raised. Patient started heparin drip at this time. Awaiting discussion with hospitalist. Spoke to the hospitalist who accepted the patient to the IMU at this time. Discussed with Dr. Brunner from Cardiology regarding patient's presentation and plan of care for heparin and echocardiogram with further evaluation inpatient. Medical Records Data Attestation: I reviewed the patient's medical records. Lab Data Attestation: I reviewed the patient's lab results. 01/24/25 12:23 01/24/25 12:23 Labs: Lab Results 01/24/25 Range/Units 12:23 WBC 6.9 (4.5-10.0) K/mm3 RBC 4.18 L (4.2-5.4) M/mm3 Hgb 12.3 (12.0-15.0) g/dL Hct 37.8 (37.0-47.0) % MCV 90.4 (80-100) fl MCH 29.4 (26-34) pg MCHC 32.5 (32-36) g/dl RDW 13.3 (11.5-14.5) % Plt Count 292 (150-375) k/mm3 MPV 10.0 (7.4-10.4) fl Immature Gran % (Auto) 0.4 (0-0.5) % Neut % (Auto) 58.0 (45.5-73.1) % Lymph % (Auto) 32.4 (18.3-44.2) % Isabela % (Auto) 7.6 (2.6-8.5) % Eos % (Auto) 1.2 (0-4.4) % Baso % (Auto) 0.4 (0.2-1.2) % Lymph # (Auto) 2.23 (0.9-3.2) K/mm3 Isabela # (Auto) 0.5 (0.1-0.6) K/mm3 Eos # (Auto) 0.1 (0-0.3) K/mm3 Baso # (Auto) 0.0 (0.0-0.1) K/mm3 Abs Immat Gran (auto) 0.03 (0.00-0.031) K/mm3 Absolute Neuts (auto) 4.0 (1.3-6.7) K/mm3 Absolute Nucleated RBC 0.000 (0.0-0.012) K/mm3 Nucleated RBC % 0.0 (0.0-0.2) % PT 13.6 (11.1-14.7) Seconds INR 1.0 APTT 33.5 (22.3-36.8) Seconds Sodium 129 L (137-145) mmol/L Potassium 4.6 (3.4-5.0) mmol/L Chloride 98 (98-107) mmol/L Carbon Dioxide 22 (22-30) mmol/L Anion Gap 9 (4-12) mmol/L BUN 17 (7-17) mg/dL Creatinine 1.66 H (0.7-1.0) mg/dL Estim Creat Clear Calc Not Reportable Estimated GFR 31 L (59 - ) Glucose 99 (65-110) mg/dL Calcium 9.2 (8.4-10.2) mg/dL Total Bilirubin 0.8 (0.2-1.3) mg/dL AST 32 (14-36) U/L ALT 21 (6-35) U/L Alkaline Phosphatase 94 (38-126) U/L Troponin I 0.064 H* (0.000-0.034) ng/mL Total Protein 7.0 (6.3-8.2) g/dL Albumin 4.1 (3.5-5.1) g/dL Lipase 86 (23-300) U/L Imaging Data Attestation: I personally reviewed and interpreted this imaging study as follows: My impression: Impressions Chest X-Ray 01/24/25 12:58 Impression: No acute cardiopulmonary abnormality. Critical Care Time Critical Care Time Critical Care Time: Yes Total Critical Care Time: 35 Discharge Plan Discharge Clinical Impression: Acute non-ST elevation myocardial infarction (NSTEMI), Chest pain Patient Disposition: Still a Patient Condition: Stable
[2025-01-24] MEDS: HEPARIN SOD/D5W 100 UNITS/ML 25,000 UNITS/250 ML BAG 8 UNITS IV CONT (14:24)
--- NOTE | 2025-01-24 14:29 | PC.NURSE ---
updated pt, pt spouse at bedside, offered food tray - pt declined
[2025-01-24] MEDS: PERFLUTREN LIPID MICROSPHERES 1.5 ML VIAL DILUTED TO 10 ML TOTAL VOLUME IV PUSH (15:20)
--- NOTE | 2025-01-24 15:26 | PM.IMHP ---
H&P: HPI History of Present Illness Date/Time: 01/24/25 15:26 Chief Complaint: Chest pain Narrative: 69-year-old female with a past medical history of hypothyroidism, GERD, hyperlipidemia, HTN, CKD, mitral valve prolapse presents to the ED on 01/24/2025 with complaints of chest pain. Patient states her chest pain started around midnight and lasted about 2 hours. She states she had a hard time going to sleep due to the pain and described it as a sudden sharp onset on the left side of her chest that then eased into a dull aching feeling the remainder of the time. It resolved on its own so she did not think much of it and went to sleep. Today around 9:30 a.m. she was shopping and had the same pain that lasts about an hour this time before she came to the ED. pain is nonradiating. No dyspnea, nausea. She then developed a headache with aura that feels like her normal migraines. Her chest pain had resolved by the time she arrived to the ED. She denies having these symptoms in the past. Has seen Dr. Michael with cardiology in the past for valvular disease but has not seen him for about 3 years. Arrival to the ED, patient is hypertensive at 158/86, and bradycardic with a heart rate of 59. Not tachypneic and satting 100% on room air. Lab significant for slight hyponatremia for, CKD around baseline Initial troponin 0.064. Initial EKG with sinus Ramone with incomplete RBBB and borderline ST-T abnormality in the anterior leads Chest x-ray with no acute cardiopulmonary abnormality Review of Systems Review of Systems: All systems reviewed & are unremarkable except as noted in HPI and below [facility] Past Medical History Medical History Dizziness History of radiation therapy Skin cancer Hypothyroid Post-menopausal GERD (gastroesophageal reflux disease) IBS (irritable bowel syndrome) Colitis Hyperlipidemia Surgical History Surgical History H/O local excision of skin lesion Right foot, nose History of tonsillectomy Family History Family History Mother Hypertension Skin cancer Father Lung cancer Throat cancer Social History Social History Smoking packs per day: 0.5 Smoking cigarettes per day: 10.0 Years smoked: 10 Smoking pack-years: 5.00 Smoking status: Former smoker Second hand tobacco smoke exposure: No Smoking end date: 04/12/90 Alcohol intake: never Substance use: never Substance use type: does not use Do You Feel Safe in your Home?: Yes Lack of Transportation: No Lack of Food: Never True Current Housing: I Have Housing Concerned About Future Housing: No Difficulty Paying Gas/Electric Bills: No Difficulty Paying for Meds: No Currently Unemployed: No Education: High School Diploma/GED Difficulty w/ Childcare or Family Care: No Living arrangements: with family Gender identity (if verbalized by the patient): Female Spiritual care concerns: No Agree to blood products: Yes Meds Home Medications and Allergies Home Medications ?Medication ?Instructions ?Recorded ?Confirmed ?Type polyethylene glycol 3350 17 gram 17 g PO DAILY 12/01/21 01/24/25 History oral powder packet (Miralax) psyllium seed (sugar) oral powder 1 tbsp PO DAILY 12/01/21 01/24/25 History (Metamucil (sugar) oral powder) calcium 600 mg (as 1 tablet PO DAILY 01/11/23 01/24/25 History carbonate)-vitamin D3 20 mcg (800 unit) tablet lisinopril 10 mg tablet 10 mg PO DAILY #90 tabs 02/21/24 01/24/25 Rx pravastatin 40 mg tablet 40 mg PO DAILY #90 tabs 03/06/24 01/24/25 Rx omeprazole 20 mg capsule,delayed 20 mg PO DAILY #90 caps 09/08/24 01/24/25 Rx release levothyroxine 50 mcg tablet 50 mcg PO DAILY #90 tabs 12/04/24 01/24/25 Rx Allergies Allergy/AdvReac Type Severity Reaction Status Date / Time nitrofurantoin Allergy Unknown Unknown Verified 01/24/25 15:59 Sulfa (Sulfonamide Allergy Unknown Unknown Verified 01/24/25 15:59 Antibiotics) Vital Signs Vital Signs - 24 hr 01/24/25 11:58 01/24/25 12:59 01/24/25 13:00 Temperature 97.3 F L Pulse Rate 59 L Respiratory Rate 20 13 Blood Pressure 158/86 H Pulse Oximetry 100 99 99 Oxygen Delivery Room Air 01/24/25 13:01 01/24/25 13:01 01/24/25 13:02 Temperature Pulse Rate 62 55 L Respiratory Rate 14 12 Blood Pressure 136/78 136/78 Pulse Oximetry 100 100 100 Oxygen Delivery Room Air 01/24/25 13:15 01/24/25 13:16 01/24/25 13:30 Temperature Pulse Rate 49 L 51 L 57 L Respiratory Rate 13 13 15 Blood Pressure 129/71 Pulse Oximetry 98 99 99 Oxygen Delivery 01/24/25 13:35 01/24/25 13:45 01/24/25 14:00 Temperature Pulse Rate 49 L 53 L 52 L Respiratory Rate 15 16 Blood Pressure Pulse Oximetry 100 100 Oxygen Delivery 01/24/25 14:01 01/24/25 14:30 Temperature Pulse Rate 49 L 47 L Respiratory Rate 14 15 Blood Pressure 125/65 125/65 Pulse Oximetry 97 100 Oxygen Delivery Exam Narrative: GENERAL: non-toxic appearing, in no acute distress. HEAD: Normocephalic, atraumatic. EYES: PERRLA. Conjunctivae clear. NOSE: Normal no drainage. THROAT: Pharynx clear, no exudate. NECK: Trachea midline. No adenopathy, no masses. RESPIRATORY: Airway patent, respirations nonlabored. CTA. CARDIOVASCULAR: Bradycardia with regular rhythm. Peripheral pulses palpable BREASTS: Defer GASTROINTESTINAL: Abdomen is soft and nontender. No organomegaly. Bowel sounds normal in all quadrants. GENITOURINARY: Defer MUSCULOSKELETAL: Moves all extremities. No gross deformities. No calf tenderness. SKIN: Warm, dry, normal color. NEURO: A&O X4. Speech clear PSYCHIATRIC: Normal interaction H&P: Results Labs Labs: Short CBC 01/24/25 Range/Units 12:23 WBC 6.9 (4.5-10.0) K/mm3 Hgb 12.3 (12.0-15.0) g/dL Hct 37.8 (37.0-47.0) % Plt Count 292 (150-375) k/mm3 [facility] 01/24/25 12:23 Sodium 129 L Potassium 4.6 Chloride 98 Carbon Dioxide 22 BUN 17 Creatinine 1.66 H Glucose 99 Calcium 9.2 Cardiac Enzymes 01/24/25 Range/Units 12:23 Troponin I 0.064 H* (0.000-0.034) ng/mL Liver Function 01/24/25 Range/Units 12:23 Total Bilirubin 0.8 (0.2-1.3) mg/dL AST 32 (14-36) U/L ALT 21 (6-35) U/L Alkaline Phosphatase 94 (38-126) U/L Albumin 4.1 (3.5-5.1) g/dL Assessment and Plan Assessment and plan (1) Acute non-ST elevation myocardial infarction (NSTEMI): Code(s): I21.4 - Non-ST elevation (NSTEMI) myocardial infarction Status: Acute Assessment and Plan: Chest pain described as a sudden sharp onset on the left side of her chest that then eased into a dull aching lasting about 2 hours. Second episode of chest pain prompted patient patient to present to the ED. pain is nonradiating. No dyspnea, nausea. Risk factors for NSTEMI include HTN, hyperlipidemia -Initial EKG with sinus Ramone with incomplete RBBB and borderline ST-T abnormality in the anterior leads - CXR with no acute cardiopulmonary abnormality - Troponin: 0.064--> 0.083 - ASA - SL nitro PRN - cardiology consulted-> cardiac manufacturing lab technician on 01/25 - started on heparin gtt -pravastatin - echo updated today, 01/24 shows EF 60 65%, mild enlargement of right and left atria, trace mitral regurg, no pulmonary hypertension -no previous stress test - telemetry monitoring (2) Stage 3b chronic kidney disease: Code(s): N18.32 - Chronic kidney disease, stage 3b Status: Acute Assessment and Plan: Creatinine about baseline at 1.66 and GFR 31. -patient will receive contrast dye on 01/25 in cardiac manufacturing lab technician -monitor renal function after cardiac catheterization (3) Primary hypertension: Code(s): I10 - Essential (primary) hypertension Status: Acute Assessment and Plan: BP 158/86 on admit. Bradycardia in the 40s and 50s -continue lisinopril -avoid beta-blockers in setting of bradycardia (4) Mixed hyperlipidemia: Code(s): E78.2 - Mixed hyperlipidemia Status: Acute Assessment and Plan: Continue pravastatin -update lipid panel in a.m. Plan Diet: Heart healthy NPO at midnight GI prophylaxis: Pantoprazole DVT prophylaxis: Heparin drip lines/drains: PIV Fluids: NA Code status: Full Quality VTE Prophylaxis VTE prophylaxis: pharmacologic ordered Hospitalist MIPS Advance Care Plan I have confirmed that the patient's Advanced Care Plan is present, code status is documented, or surrogate decision maker is listed in patient medical record.: Yes Medication Reconciliation I have utilized all available resources to obtain, update and review the patients current medications (includes all prescriptions, OTC, herbals, cannabis, and nutritional supplements).: Yes
--- NOTE | 2025-01-24 15:40 | IVDEFINITY ---
Prior to administration of IV Definity the patient was educated on the risks and benefits of the imaging enhancing agent including potential adverse side effects. The patient verbalized understanding. Allergies were verified. No exclusion criteria were identified and at least one of the following inclusion criteria were met: 1) physician request, 2) patient technically difficult to image (per the [place] [employer]ocardi[employer] guidelines of two or more segments not discernable within the apical view), or 3) questionable left ventricular function. ?
--- NOTE | 2025-01-24 15:42 | ADMGEN ---
This patient, Sangeetha Beth, was admitted to IMU Room 203-01. Patient/family oriented to hospital policies and general routines including ID bracelet, bed and alarms, visiting hours, pain management, procedures, bathroom and other care routines, personal items, smoking policy, room service/diet, and visiting hours. Information on how to activate the Rapid Response Team has been discussed. Patient/Family are encouraged to report perceived risks to care and to ask questions if they do not understand what they are told or what they should do.
--- NOTE | 2025-01-24 15:48 | PM.CNCAR ---
Assessment and Plan Assessment and plan (1) Chest pain: Code(s): R07.9 - Chest pain, unspecified Status: Acute Assessment and Plan: Troponin slightly elevated at .064. On heparin drip, aspirin, Pravastatin. Hold off on beta sourav due to HR 47 bpm. Check echo. Discuss risks/benefits/alternative to [facility] and she is agreeable to it knowing risks especially with mild-mod CKD. Will consult [facility] for it. (2) Primary hypertension: Code(s): I10 - Essential (primary) hypertension Status: Acute Assessment and Plan: Stable. (3) Mixed hyperlipidemia: Code(s): E78.2 - Mixed hyperlipidemia Status: Acute Assessment and Plan: On Pravastatin. History of Present Illness History of Present Illness Consult date/time: 01/24/25 15:48 Reason For Visit: Chest Pain/NSTEMI Narrative: 69 yr old woman was my regular cardiology patient but have not seen in over 3 years and a patient of Jacquie Gibbs presents to ER with chest pain. She has a history of hypertension, dyslipidemia. 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 That's when she decided to drive in to ER. No chest pain currently. She does have intermittent swelling of leg at end of the day and she sits at a desk all day. She can walk at least 1 mile without any problems. Denies sob, orthopnea, PND, palpitations. Cardiovascular Procedures Electrophysiology:: 12/06/21 EKG: Sinus bradycardia at 57 bpm, possible inferior infarct. Review of Systems Review of Systems: All systems reviewed & are unremarkable except as noted in HPI and below Constitutional: Constitutional: Reports as per HPI, Denies chills and Denies fever(s) Cardiovascular: Cardiovascular: Reports as per HPI, Reports chest pain and Denies irregular heart rhythm Respiratory: Respiratory: Reports as per HPI and Denies dyspnea Gastrointestinal: Gastrointestinal: Reports as per HPI and Denies abdominal pain Genitourinary: Genitourinary: Reports as per HPI and Denies dysuria Musculoskeletal: Musculoskeletal: Reports as per HPI Neurologic: Reports as per HPI, Denies dizziness and Denies syncope [facility] Past Medical History Medical History Dizziness History of radiation therapy Skin cancer Hypothyroid Post-menopausal GERD (gastroesophageal reflux disease) IBS (irritable bowel syndrome) Colitis Hyperlipidemia Surgical History Surgical History H/O local excision of skin lesion Right foot, nose History of tonsillectomy Family History Family History Mother Hypertension Social History Social History Smoking packs per day: 0.5 Smoking cigarettes per day: 10.0 Years smoked: 10 Smoking pack-years: 5.00 Smoking status: Former smoker Second hand tobacco smoke exposure: No Smoking end date: 04/12/90 Alcohol intake: never Substance use: never Substance use type: does not use Do You Feel Safe in your Home?: Yes Lack of Transportation: No Lack of Food: Never True Current Housing: I Have Housing Concerned About Future Housing: No Difficulty Paying Gas/Electric Bills: No Difficulty Paying for Meds: No Currently Unemployed: No Education: High School Diploma/GED Difficulty w/ Childcare or Family Care: No Living arrangements: with family Gender identity (if verbalized by the patient): Female Spiritual care concerns: No Agree to blood products: Yes Meds Home Medications and Allergies Home Medications ?Medication ?Instructions ?Recorded ?Confirmed ?Type polyethylene glycol 3350 17 gram 17 g PO DAILY 12/01/21 11/08/24 History oral powder packet (Miralax) psyllium seed (sugar) oral powder 1 tbsp PO DAILY 12/01/21 11/08/24 History (Metamucil (sugar) oral powder) calcium 600 mg (as 1 tablet PO DAILY 01/11/23 11/08/24 History carbonate)-vitamin D3 20 mcg (800 unit) tablet lisinopril 10 mg tablet 10 mg PO DAILY #90 tabs 02/21/24 11/08/24 Rx pravastatin 40 mg tablet 40 mg PO DAILY #90 tabs 03/06/24 11/08/24 Rx omeprazole 20 mg capsule,delayed 20 mg PO DAILY #90 caps 09/08/24 11/08/24 Rx release levothyroxine 50 mcg tablet 50 mcg PO DAILY #90 tabs 12/04/24 Rx Allergies Allergy/AdvReac Type Severity Reaction Status Date / Time nitrofurantoin Allergy Unknown Unknown Verified 01/24/25 12:57 Sulfa (Sulfonamide Allergy Unknown Unknown Verified 01/24/25 12:57 Antibiotics) Vital Signs Vital Signs - 24 hr 01/24/25 11:58 01/24/25 12:59 01/24/25 13:00 Temperature 97.3 F L Pulse Rate 59 L Respiratory Rate 20 13 Blood Pressure 158/86 H Pulse Oximetry 100 99 99 Oxygen Delivery Room Air 01/24/25 13:01 01/24/25 13:01 01/24/25 13:02 Temperature Pulse Rate 62 55 L Respiratory Rate 14 12 Blood Pressure 136/78 136/78 Pulse Oximetry 100 100 100 Oxygen Delivery Room Air 01/24/25 13:15 01/24/25 13:16 01/24/25 13:30 Temperature Pulse Rate 49 L 51 L 57 L Respiratory Rate 13 13 15 Blood Pressure 129/71 Pulse Oximetry 98 99 99 Oxygen Delivery 01/24/25 13:35 01/24/25 13:45 01/24/25 14:00 Temperature Pulse Rate 49 L 53 L 52 L Respiratory Rate 15 16 Blood Pressure Pulse Oximetry 100 100 Oxygen Delivery 01/24/25 14:01 01/24/25 14:30 Temperature Pulse Rate 49 L 47 L Respiratory Rate 14 15 Blood Pressure 125/65 125/65 Pulse Oximetry 97 100 Oxygen Delivery Exam Const: General: cooperative, healthy appearing and comfortable Resp: Auscultation: clear to auscultation bilaterally, no crackles, no rales, no rhonchi and no wheezes Cardio: Rate: regular rate Rhythm: regular rhythm Heart sounds: no murmurs Peripheral pulses: dorsalis pedis present GI: GI Palp: No abdominal tenderness and Yes Soft to palpation Neuro: General: oriented to person, oriented to place and oriented to time Extrem: Right lower extremity: no edema Left lower extremity: no edema Results Labs and Meds 01/24/25 12:23 01/24/25 12:23 Lab results: Cardiac Enzymes 01/24/25 Range/Units 12:23 AST 32 (14-36) U/L Troponin I 0.064 H* (0.000-0.034) ng/mL Coagulation 01/24/25 Range/Units 12:23 PT 13.6 (11.1-14.7) Seconds APTT 33.5 (22.3-36.8) Seconds CBC 01/24/25 Range/Units 12:23 WBC 6.9 (4.5-10.0) K/mm3 RBC 4.18 L (4.2-5.4) M/mm3 Hgb 12.3 (12.0-15.0) g/dL Hct 37.8 (37.0-47.0) % Plt Count 292 (150-375) k/mm3 Lymph # (Auto) 2.23 (0.9-3.2) K/mm3 [place] # (Auto) 0.5 (0.1-0.6) K/mm3 Eos # (Auto) 0.1 (0-0.3) K/mm3 Baso # (Auto) 0.0 (0.0-0.1) K/mm3 Comprehensive Metabolic Panel 01/24/25 Range/Units 12:23 Sodium 129 L (137-145) mmol/L Potassium 4.6 (3.4-5.0) mmol/L Chloride 98 (98-107) mmol/L Carbon Dioxide 22 (22-30) mmol/L BUN 17 (7-17) mg/dL Creatinine 1.66 H (0.7-1.0) mg/dL Glucose 99 (65-110) mg/dL Calcium 9.2 (8.4-10.2) mg/dL AST 32 (14-36) U/L ALT 21 (6-35) U/L Alkaline Phosphatase 94 (38-126) U/L Total Protein 7.0 (6.3-8.2) g/dL Albumin 4.1 (3.5-5.1) g/dL Patient Weight 01/24/25 23:59 Weight 74.6 kg
[2025-01-24 16:38] LABS: Troponin I 0.093 ng/mL (0.000-0.034)
[2025-01-24 20:16] LABS: Hematocrit 33.8 % (37.0-47.0); Hemoglobin 11.2 g/dL (12.0-15.0); Immature Granulocyte Percent A 0.3 % (0-0.5); Lymphocytes Absolute Auto 2.60 K/mm3 (0.9-3.2); Mean Corpuscular HGB Conc 33.1 g/dl (32-36); Mean Corpuscular Hemoglobin 29.3 pg (26-34); Mean Corpuscular Volume 88.5 fl (80-100); Nucleated Red Blood Cells Absolute Auto 0.000 K/mm3 (0.0-0.012); Nucleated Red Blood Cells Perc 0.0 % (0.0-0.2); Platelet Count Result 253 k/mm3 (150-375); Red Blood Count 3.82 M/mm3 (4.2-5.4); White Blood Count 6.6 K/mm3 (4.5-10.0)
[2025-01-24 20:31] LABS: INR 1.1; Prothrombin Time 14.6 Seconds (11.1-14.7)
[2025-01-24 20:33] LABS: Partial Thromboplastin Time 78.6 Seconds (22.3-36.8)
[2025-01-24 20:43] LABS: Troponin I 0.083 ng/mL (0.000-0.034)
[2025-01-25] VITALS (31 sets, daily range): BP systolic 81–128; BP diastolic 45–85; PULSE 46–64; RESP 12–16; TEMP 36.4–36.7; O2SAT 94–100
[2025-01-25 02:55] LABS: Hematocrit 33.1 % (37.0-47.0); Hemoglobin 11.0 g/dL (12.0-15.0); Immature Granulocyte Percent A 0.2 % (0-0.5); Lymphocytes Absolute Auto 2.66 K/mm3 (0.9-3.2); Mean Corpuscular HGB Conc 33.2 g/dl (32-36); Mean Corpuscular Hemoglobin 29.8 pg (26-34); Mean Corpuscular Volume 89.7 fl (80-100); Nucleated Red Blood Cells Absolute Auto 0.000 K/mm3 (0.0-0.012); Nucleated Red Blood Cells Perc 0.0 % (0.0-0.2); Platelet Count Result 251 k/mm3 (150-375); Red Blood Count 3.69 M/mm3 (4.2-5.4); White Blood Count 5.6 K/mm3 (4.5-10.0)
[2025-01-25 03:06] LABS: Partial Thromboplastin Time 98.5 Seconds (22.3-36.8)
[2025-01-25 03:10] LABS: Anion Gap 5 mmol/L (4-12); Blood Urea Nitrogen 17 mg/dL (7-17); Calcium 8.7 mg/dL (8.4-10.2); Carbon Dioxide 23 mmol/L (22-30); Chloride 101 mmol/L (98-107); Cholesterol 165 mg/dL (0-200); Estimated CRCL calculation 29 ml/min; Estimated Glomerular Filt Rate 31; Glucose 90 mg/dL (65-110); HDL Direct 36 mg/dL; Potassium 4.2 mmol/L (3.4-5.0); Sodium 129 mmol/L (137-145); Triglycerides 108 mg/dL (<150)
[2025-01-25] MEDS: LEVOTHYROXINE SODIUM 50 MCG TABLET PO (05:52)
--- NOTE | 2025-01-25 07:54 | P.PNCA_ITS ---
Progress Note: A&P Assessment and Plan (1) Chest pain: Code(s): R07.9 - Chest pain, unspecified Status: Acute Assessment and Plan: Troponin peaked at .093. On heparin drip, aspirin, Pravastatin. Hold off on beta sourav due to HR 47 bpm. Discuss risks/benefits/alternative to [facility] and she is agreeable to it knowing risks especially with mild-mod CKD. Consulted HCG for it. Keep NPO. (2) Primary hypertension: Code(s): I10 - Essential (primary) hypertension Status: Acute Assessment and Plan: Stable. (3) Mixed hyperlipidemia: Code(s): E78.2 - Mixed hyperlipidemia Status: Acute Assessment and Plan: On Pravastatin. Subjective Date/time seen: 01/25/25 07:54 Interval history: No more chest pains. Denies sob. Exam Const: General: cooperative, healthy appearing and comfortable Orientation/consciousness: oriented to person, oriented to place and oriented to time Resp: Auscultation: clear to auscultation bilaterally, no crackles, no rales, no rhonchi and no wheezes Cardio: Rate: regular rate Rhythm: regular rhythm Heart sounds: no murmurs Peripheral pulses: dorsalis pedis present Neuro: General: oriented to person, oriented to place and oriented to time Extrem: Right lower extremity: no edema Left lower extremity: no edema Objective Data Vital Signs Vital Signs: Vital Signs - 24 hr 01/24/25 11:58 01/24/25 12:59 01/24/25 13:00 Temperature 97.3 F L Pulse Rate 59 L Respiratory Rate 20 13 Blood Pressure 158/86 H Pulse Oximetry 100 99 99 Oxygen Delivery Room Air 01/24/25 13:01 01/24/25 13:01 01/24/25 13:02 Temperature Pulse Rate 62 55 L Respiratory Rate 14 12 Blood Pressure 136/78 136/78 Pulse Oximetry 100 100 100 Oxygen Delivery Room Air 01/24/25 13:15 01/24/25 13:16 01/24/25 13:30 Temperature Pulse Rate 49 L 51 L 57 L Respiratory Rate 13 13 15 Blood Pressure 129/71 Pulse Oximetry 98 99 99 Oxygen Delivery 01/24/25 13:35 01/24/25 13:45 01/24/25 14:00 Temperature Pulse Rate 49 L 53 L 52 L Respiratory Rate 15 16 Blood Pressure Pulse Oximetry 100 100 Oxygen Delivery 01/24/25 14:01 01/24/25 14:30 01/24/25 15:30 Temperature 98.1 F Pulse Rate 49 L 47 L 57 L Respiratory Rate 14 15 18 Blood Pressure 125/65 125/65 144/65 H Pulse Oximetry 97 100 99 Oxygen Delivery 01/24/25 16:00 01/24/25 18:00 01/24/25 20:00 Temperature 98.3 F Pulse Rate 48 L 82 53 L Respiratory Rate 14 Blood Pressure 105/56 L Pulse Oximetry 97 Oxygen Delivery 01/24/25 20:00 01/24/25 20:00 01/24/25 22:00 Temperature Pulse Rate 54 L 54 L 52 L Respiratory Rate 14 Blood Pressure Pulse Oximetry 97 Oxygen Delivery Room Air 01/24/25 23:57 01/25/25 00:00 01/25/25 00:00 Temperature 98.1 F Pulse Rate 62 54 L 54 L Respiratory Rate 14 14 Blood Pressure 104/52 L Pulse Oximetry 98 98 Oxygen Delivery Room Air 01/25/25 02:00 01/25/25 03:45 01/25/25 03:45 Temperature Pulse Rate 48 L 46 L 46 L Respiratory Rate 14 Blood Pressure Pulse Oximetry 98 Oxygen Delivery Room Air 01/25/25 04:00 01/25/25 06:00 Temperature 98.1 F Pulse Rate 47 L 46 L Respiratory Rate 12 Blood Pressure 103/53 L Pulse Oximetry 98 Oxygen Delivery Intake/Output Intake/Output: Intake & Output 01/22/25 01/23/25 01/24/25 01/25/25 23:59 23:59 23:59 23:59 Intake Total 492.8 290.3 Output Total 1600 Balance 492.8 -1309.7 Meds/Results Medications: Active Medications Generic Name Dose Route Start Last Admin Trade Name Freq PRN Reason Stop Dose Admin Acetaminophen 650 mg 01/24/25 14:06 Acetaminophen 325 Mg Tablet PO Q4H PRN Mild Pain (1-3) or Fever Aspirin 81 mg 01/25/25 09:00 Aspirin 81 Mg Enteric Tablet PO QAM [facility] Calcium Carbonate 500 mg 01/25/25 09:00 Calcium/Vitamin D 500 Mg/5 Mcg (200 I.U.) Tablet PO DAILY [facility] Heparin Sodium (Porcine) 4,000 units 01/24/25 13:49 Heparin Sodium 5,000 Units/Ml Vial IV PUSH PRN PRN aPTT less than 55 seconds Heparin Sodium (Porcine) 2,500 units 01/24/25 13:49 Heparin Sodium 5,000 Units/Ml Vial IV PUSH PRN PRN aPTT 55 - 70 seconds Heparin Sodium/Dextrose 25,000 units in 250 mls @ 8 mls/hr 01/24/25 13:50 01/25/25 03:17 Heparin Sodium/D5w 100 Units/Ml IV CONT 800 units/hr .Q24H [facility] 8 mls/hr Protocol Titration 800 UNITS/HR Levothyroxine Sodium 50 mcg 01/25/25 06:30 01/25/25 05:52 Levothyroxine Sodium 50 Mcg Tablet PO 50 mcg DAILY@0630 [facility] Administration Lisinopril 10 mg 01/25/25 09:00 Lisinopril 10 Mg Tablet PO DAILY [facility] Ondansetron HCl 4 mg 01/24/25 14:06 Ondansetron Inj 4 Mg/2 Ml Vial IV PUSH Q4H PRN Nausea Pantoprazole Sodium 40 mg 01/25/25 09:00 Pantoprazole 40 Mg Tablet PO QAM [facility] Polyethylene Glycol 17 gm 01/25/25 09:00 Polyethylene Glycol 3350 17 Gm Powd.Pack PO DAILY [facility] Pravastatin Sodium 40 mg 01/25/25 09:00 Pravastatin Sodium 20 Mg Tablet PO DAILY [facility] Psyllium Hydrophilic Mucilloid 1 packet 01/25/25 09:00 Psyllium Powder Packet PO DAILY [facility] Radiology Results: ITS Impressions Chest X-Ray 01/24/25 12:58 Impression: No acute cardiopulmonary abnormality. Labs Labs: Laboratory Results - last 24 hr 01/24/25 01/24/25 01/24/25 12:23 16:03 19:57 WBC 6.9 6.6 RBC 4.18 L 3.82 L Hgb 12.3 11.2 L Hct 37.8 33.8 L MCV 90.4 88.5 MCH 29.4 29.3 MCHC 32.5 33.1 RDW 13.3 13.4 Plt Count 292 253 MPV 10.0 9.8 Immature Gran % (Auto) 0.4 0.3 Neut % (Auto) 58.0 52.3 Lymph % (Auto) 32.4 39.6 [place] % (Auto) 7.6 6.1 Eos % (Auto) 1.2 1.1 Baso % (Auto) 0.4 0.6 Lymph # (Auto) 2.23 2.60 [place] # (Auto) 0.5 0.4 Eos # (Auto) 0.1 0.1 Baso # (Auto) 0.0 0.0 Abs Immat Gran (auto) 0.03 0.02 Absolute Neuts (auto) 4.0 3.4 Absolute Nucleated RBC 0.000 0.000 Nucleated RBC % 0.0 0.0 PT 13.6 14.6 INR 1.0 1.1 APTT 33.5 78.6 H Sodium 129 L Potassium 4.6 Chloride 98 Carbon Dioxide 22 Anion Gap 9 BUN 17 Creatinine 1.66 H Estim Creat Clear Calc Not Reportable Estimated GFR 31 L Glucose 99 Calcium 9.2 Total Bilirubin 0.8 AST 32 ALT 21 Alkaline Phosphatase 94 Troponin I 0.064 H* 0.093 H* D 0.083 H* Total Protein 7.0 Albumin 4.1 Triglycerides Cholesterol LDL Cholesterol Direct HDL Direct Lipase 86 01/25/25 02:51 WBC 5.6 RBC 3.69 L Hgb 11.0 L Hct 33.1 L MCV 89.7 MCH 29.8 MCHC 33.2 RDW 13.2 Plt Count 251 MPV 9.6 Immature Gran % (Auto) 0.2 Neut % (Auto) 42.5 L Lymph % (Auto) 47.2 H [place] % (Auto) 7.4 Eos % (Auto) 2.0 Baso % (Auto) 0.7 Lymph # (Auto) 2.66 [place] # (Auto) 0.4 Eos # (Auto) 0.1 Baso # (Auto) 0.0 Abs Immat Gran (auto) 0.01 Absolute Neuts (auto) 2.4 Absolute Nucleated RBC 0.000 Nucleated RBC % 0.0 PT INR APTT 98.5 H Sodium 129 L Potassium 4.2 Chloride 101 Carbon Dioxide 23 Anion Gap 5 BUN 17 Creatinine 1.66 H Estim Creat Clear Calc 29 Estimated GFR 31 L Glucose 90 Calcium 8.7 Total Bilirubin AST ALT Alkaline Phosphatase Troponin I Total Protein Albumin Triglycerides 108 Cholesterol 165 LDL Cholesterol Direct 97 HDL Direct 36 Lipase
--- NOTE | 2025-01-25 10:10 | WPDHPUPDATE1 ---
History and Physical Update Update Date/Time: 01/25/25 10:10 History and Physical has been reviewed, including an updated exam of the patient. There are NO changes in the patient's condition. Risks, benefits, and alternatives have been discussed and questions answered. Patient agrees to proceed with procedure.
--- NOTE | 2025-01-25 10:10 | WPDMODSED ---
Moderate Sedation Note-Pt Data Patient Data Allergies Allergy/AdvReac Type Severity Reaction Status Date / Time nitrofurantoin Allergy Unknown Unknown Verified 01/24/25 15:59 Sulfa (Sulfonamide Allergy Unknown Unknown Verified 01/24/25 15:59 Antibiotics) Home Medications ?Medication ?Instructions ?Recorded ?Confirmed ?Type polyethylene glycol 3350 17 gram 17 g PO DAILY 12/01/21 01/24/25 History oral powder packet (Miralax) psyllium seed (sugar) oral powder 1 tbsp PO DAILY 12/01/21 01/24/25 History (Metamucil (sugar) oral powder) calcium 600 mg (as 1 tablet PO DAILY 01/11/23 01/24/25 History carbonate)-vitamin D3 20 mcg (800 unit) tablet lisinopril 10 mg tablet 10 mg PO DAILY #90 tabs 02/21/24 01/24/25 Rx pravastatin 40 mg tablet 40 mg PO DAILY #90 tabs 03/06/24 01/24/25 Rx omeprazole 20 mg capsule,delayed 20 mg PO DAILY #90 caps 09/08/24 01/24/25 Rx release levothyroxine 50 mcg tablet 50 mcg PO DAILY #90 tabs 12/04/24 01/24/25 Rx Current Medications: Active Medications Acetaminophen (Acetaminophen 325 Mg Tablet) 650 mg PO Q4H PRN PRN Reason: Mild Pain (1-3) or Fever Aspirin (Aspirin 81 Mg Enteric Tablet) 81 mg PO QAM [facility] Calcium Carbonate (Calcium/Vitamin D 500 Mg/5 Mcg (200 I.U.) Tablet) 500 mg PO DAILY [facility] Heparin Sodium (Porcine) (Heparin Sodium 5,000 Units/Ml Vial) 4,000 units IV PUSH PRN PRN PRN Reason: aPTT less than 55 seconds Heparin Sodium (Porcine) (Heparin Sodium 5,000 Units/Ml Vial) 2,500 units IV PUSH PRN PRN PRN Reason: aPTT 55 - 70 seconds Heparin Sodium/Dextrose (Heparin Sodium/D5w 100 Units/Ml) 25,000 units in 250 mls @ 8 mls/hr IV CONT .Q24H [facility]; Protocol Last Titration: 01/25/25 03:17 Dose: 800 units/hr, 8 mls/hr Levothyroxine Sodium (Levothyroxine Sodium 50 Mcg Tablet) 50 mcg PO DAILY@0630 [facility] Last Admin: 01/25/25 05:52 Dose: 50 mcg Lisinopril (Lisinopril 10 Mg Tablet) 10 mg PO DAILY [facility] Ondansetron HCl (Ondansetron Inj 4 Mg/2 Ml Vial) 4 mg IV PUSH Q4H PRN PRN Reason: Nausea Pantoprazole Sodium (Pantoprazole 40 Mg Tablet) 40 mg PO QAM [facility] Polyethylene Glycol (Polyethylene Glycol 3350 17 Gm Powd.Pack) 17 gm PO DAILY [facility] Pravastatin Sodium (Pravastatin Sodium 20 Mg Tablet) 40 mg PO DAILY [facility] Psyllium Hydrophilic Mucilloid (Psyllium Powder Packet) 1 packet PO DAILY [facility] Sedation/Anesthesia: No previous sedation/anesthesia problems (including family history). [facility] Past Medical History Medical History Dizziness History of radiation therapy Skin cancer Hypothyroid Post-menopausal GERD (gastroesophageal reflux disease) IBS (irritable bowel syndrome) Colitis Hyperlipidemia Surgical History Surgical History H/O local excision of skin lesion Right foot, nose History of tonsillectomy Family History Family History Mother Hypertension Skin cancer Father Lung cancer Throat cancer Social History Social History Smoking packs per day: 0.5 Smoking cigarettes per day: 10.0 Years smoked: 10 Smoking pack-years: 5.00 Smoking status: Former smoker Second hand tobacco smoke exposure: No Smoking end date: 04/12/90 Alcohol intake: never Substance use: never Substance use type: does not use Do You Feel Safe in your Home?: Yes Lack of Transportation: No Lack of Food: Never True Current Housing: I Have Housing Concerned About Future Housing: No Difficulty Paying Gas/Electric Bills: No Difficulty Paying for Meds: No Currently Unemployed: No Education: High School Diploma/GED Difficulty w/ Childcare or Family Care: No Living arrangements: with family Gender identity (if verbalized by the patient): Female Spiritual care concerns: No Agree to blood products: Yes Mod Sed Physical Exam Physical Exam Pre Procedural Exam: Normal: Lungs, Heart Size, Heart Rate and Heart Rhythm Hours since solid foods: 12 Hours since liquid intake: 12 Mallampati Classification: class II Internal Medicine - PN: Obj Da Vital Signs Vital Signs: Vital Signs - 24 hr 01/24/25 11:58 01/24/25 12:59 01/24/25 13:00 Temperature 36.3 C L Pulse Rate 59 L Respiratory Rate 20 13 Blood Pressure 158/86 H Pulse Oximetry 100 99 99 Oxygen Delivery Room Air 01/24/25 13:01 01/24/25 13:01 01/24/25 13:02 Temperature Pulse Rate 62 55 L Respiratory Rate 14 12 Blood Pressure 136/78 136/78 Pulse Oximetry 100 100 100 Oxygen Delivery Room Air 01/24/25 13:15 01/24/25 13:16 01/24/25 13:30 Temperature Pulse Rate 49 L 51 L 57 L Respiratory Rate 13 13 15 Blood Pressure 129/71 Pulse Oximetry 98 99 99 Oxygen Delivery 01/24/25 13:35 01/24/25 13:45 01/24/25 14:00 Temperature Pulse Rate 49 L 53 L 52 L Respiratory Rate 15 16 Blood Pressure Pulse Oximetry 100 100 Oxygen Delivery 01/24/25 14:01 01/24/25 14:30 01/24/25 15:30 Temperature 36.7 C Pulse Rate 49 L 47 L 57 L Respiratory Rate 14 15 18 Blood Pressure 125/65 125/65 144/65 H Pulse Oximetry 97 100 99 Oxygen Delivery 01/24/25 16:00 01/24/25 18:00 01/24/25 20:00 Temperature 36.8 C Pulse Rate 48 L 82 53 L Respiratory Rate 14 Blood Pressure 105/56 L Pulse Oximetry 97 Oxygen Delivery 01/24/25 20:00 01/24/25 20:00 01/24/25 22:00 Temperature Pulse Rate 54 L 54 L 52 L Respiratory Rate 14 Blood Pressure Pulse Oximetry 97 Oxygen Delivery Room Air 01/24/25 23:57 01/25/25 00:00 01/25/25 00:00 Temperature 36.7 C Pulse Rate 62 54 L 54 L Respiratory Rate 14 14 Blood Pressure 104/52 L Pulse Oximetry 98 98 Oxygen Delivery Room Air 01/25/25 02:00 01/25/25 03:45 01/25/25 03:45 Temperature Pulse Rate 48 L 46 L 46 L Respiratory Rate 14 Blood Pressure Pulse Oximetry 98 Oxygen Delivery Room Air 01/25/25 04:00 01/25/25 06:00 01/25/25 08:00 Temperature 36.7 C 36.4 C Pulse Rate 47 L 46 L 54 L Respiratory Rate 12 12 Blood Pressure 103/53 L 118/53 L Pulse Oximetry 98 100 Oxygen Delivery 01/25/25 08:00 Temperature Pulse Rate 56 L Respiratory Rate Blood Pressure Pulse Oximetry Oxygen Delivery Intake/Output Intake/Output: Intake & Output 01/22/25 01/23/25 01/24/25 01/25/25 23:59 23:59 23:59 23:59 Intake Total 492.8 290.3 Output Total 1600 Balance 492.8 -1309.7 Meds/Results Medications: Active Medications Generic Name Dose Route Start Last Admin Trade Name Freq PRN Reason Stop Dose Admin Acetaminophen 650 mg 01/24/25 14:06 Acetaminophen 325 Mg Tablet PO Q4H PRN Mild Pain (1-3) or Fever Aspirin 81 mg 01/25/25 09:00 Aspirin 81 Mg Enteric Tablet PO QAM [facility] Calcium Carbonate 500 mg 01/25/25 09:00 Calcium/Vitamin D 500 Mg/5 Mcg (200 I.U.) Tablet PO DAILY [facility] Heparin Sodium (Porcine) 4,000 units 01/24/25 13:49 Heparin Sodium 5,000 Units/Ml Vial IV PUSH PRN PRN aPTT less than 55 seconds Heparin Sodium (Porcine) 2,500 units 01/24/25 13:49 Heparin Sodium 5,000 Units/Ml Vial IV PUSH PRN PRN aPTT 55 - 70 seconds Heparin Sodium/Dextrose 25,000 units in 250 mls @ 8 mls/hr 01/24/25 13:50 01/25/25 03:17 Heparin Sodium/D5w 100 Units/Ml IV CONT 800 units/hr .Q24H [facility] 8 mls/hr Protocol Titration 800 UNITS/HR Levothyroxine Sodium 50 mcg 01/25/25 06:30 01/25/25 05:52 Levothyroxine Sodium 50 Mcg Tablet PO 50 mcg DAILY@0630 [facility] Administration Lisinopril 10 mg 01/26/25 09:00 Lisinopril 10 Mg Tablet PO DAILY [facility] Ondansetron HCl 4 mg 01/24/25 14:06 Ondansetron Inj 4 Mg/2 Ml Vial IV PUSH Q4H PRN Nausea Pantoprazole Sodium 40 mg 01/25/25 09:00 Pantoprazole 40 Mg Tablet PO QAM [facility] Polyethylene Glycol 17 gm 01/25/25 09:00 Polyethylene Glycol 3350 17 Gm Powd.Pack PO DAILY [facility] Pravastatin Sodium 40 mg 01/25/25 09:00 Pravastatin Sodium 20 Mg Tablet PO DAILY [facility] Psyllium Hydrophilic Mucilloid 1 packet 01/25/25 09:00 Psyllium Powder Packet PO DAILY [facility] Radiology Results: ITS Impressions Chest X-Ray 01/24/25 12:58 Impression: No acute cardiopulmonary abnormality. Labs 01/25/25 02:51 01/25/25 02:51 Labs: Laboratory Results - last 24 hr 01/24/25 01/24/25 01/24/25 12:23 16:03 19:57 WBC 6.9 6.6 RBC 4.18 L 3.82 L Hgb 12.3 11.2 L Hct 37.8 33.8 L MCV 90.4 88.5 MCH 29.4 29.3 MCHC 32.5 33.1 RDW 13.3 13.4 Plt Count 292 253 MPV 10.0 9.8 Immature Gran % (Auto) 0.4 0.3 Neut % (Auto) 58.0 52.3 Lymph % (Auto) 32.4 39.6 [place] % (Auto) 7.6 6.1 Eos % (Auto) 1.2 1.1 Baso % (Auto) 0.4 0.6 Lymph # (Auto) 2.23 2.60 [place] # (Auto) 0.5 0.4 Eos # (Auto) 0.1 0.1 Baso # (Auto) 0.0 0.0 Abs Immat Gran (auto) 0.03 0.02 Absolute Neuts (auto) 4.0 3.4 Absolute Nucleated RBC 0.000 0.000 Nucleated RBC % 0.0 0.0 PT 13.6 14.6 INR 1.0 1.1 APTT 33.5 78.6 H Sodium 129 L Potassium 4.6 Chloride 98 Carbon Dioxide 22 Anion Gap 9 BUN 17 Creatinine 1.66 H Estim Creat Clear Calc Not Reportable Estimated GFR 31 L Glucose 99 Calcium 9.2 Total Bilirubin 0.8 AST 32 ALT 21 Alkaline Phosphatase 94 Troponin I 0.064 H* 0.093 H* D 0.083 H* Total Protein 7.0 Albumin 4.1 Triglycerides Cholesterol LDL Cholesterol Direct HDL Direct Lipase 86 01/25/25 02:51 WBC 5.6 RBC 3.69 L Hgb 11.0 L Hct 33.1 L MCV 89.7 MCH 29.8 MCHC 33.2 RDW 13.2 Plt Count 251 MPV 9.6 Immature Gran % (Auto) 0.2 Neut % (Auto) 42.5 L Lymph % (Auto) 47.2 H [place] % (Auto) 7.4 Eos % (Auto) 2.0 Baso % (Auto) 0.7 Lymph # (Auto) 2.66 [place] # (Auto) 0.4 Eos # (Auto) 0.1 Baso # (Auto) 0.0 Abs Immat Gran (auto) 0.01 Absolute Neuts (auto) 2.4 Absolute Nucleated RBC 0.000 Nucleated RBC % 0.0 PT INR APTT 98.5 H Sodium 129 L Potassium 4.2 Chloride 101 Carbon Dioxide 23 Anion Gap 5 BUN 17 Creatinine 1.66 H Estim Creat Clear Calc 29 Estimated GFR 31 L Glucose 90 Calcium 8.7 Total Bilirubin AST ALT Alkaline Phosphatase Troponin I Total Protein Albumin Triglycerides 108 Cholesterol 165 LDL Cholesterol Direct 97 HDL Direct 36 Lipase ASA Classification/Sedation ASA Classification/Sedation ASA Class: III Emergent: No Risks: Risks, benefits and alternatives explained and patient/family accepted plan for sedation. Patient re-evaluated immediately prior to sedation.
--- NOTE | 2025-01-25 12:04 | WPDCARDPROC ---
Cardiac Cath Procedure Note Date of procedure:: 01/25/25 Performing physician:: CATHETERIZATION LABORATORY REPORT Procedure Date: 01/25/2025 Referring Physician: Dr. Michael Anesthesia: Versed and Fentanyl were ordered and given in my presence at 1136, procedure ended at 1145. Supervision of nurse monitored moderate sedation with 2mg Versed and 100mcg Fentanyl was provided for 9 minutes. Pre-op Diagnosis: Non ST-elevation NM Post-op Diagnosis: Non ST elevation NM Procedure(s): Left heart catheterization with coronary angiography Access Site: Right radial artery Brief History and Clinical Indications: All risks, benefits and alternatives to left heart catheterization with or without percutaneous coronary intervention was discussed at length with the patient. Risk of complications including but not limited to bleeding, infection, arrhythmia, stroke, worsening kidney function, blood loss, groin hematoma, limb loss, emergency coronary artery bypass grafting, and even were discussed with the patient and all questions were answered. The patient understood and wished to proceed. Time out called, patient name, date of , medical record number, allergies, procedure performed, identify [employer] Bi Developer, patient and staff member concurred with accurate data, procedure carried on. Findings: LEFT HEART CATHETERIZATION FINDINGS: 1. Left main: The left main coronary artery is widely patent without any significant obstructive disease. 2. Left anterior descending: The LAD and the diagonal branches are angiographically free of significant stenosis. 3. Left circumflex: The left circumflex artery and the main marginal branches have mild luminal irregularities without any significant obstructive angiographic disease. 4. Right coronary artery: The RCA is a large dominant vessel that is angiographically free of stenosis. 5. Left ventricle: A. End-diastolic pressure 12 mmHg. B. LV gram deferred. C. No significant gradient across aortic valve on catheter pullback. 6. Opening AO pressure 110/55 and closing AO pressure 93/63 Description of Procedure: Informed consent signed and placed in the chart. Patient transferred to construction laborer room. Prepped and draped in usual sterile fashion. 2% lidocaine injected subcutaneously in right wrist area. 22-gauge venipuncture catheter used to access the right radial artery with the Seldinger technique. 6-FR slender sheath placed in right radial artery. Nitroglycerin 200mcg, Verapamil 2.5mg, and Heparin 5000U was given intraarterial through the sheath. J wire advanced under fluoroscopy, 5F TIG diagnostic catheter crossed the aortic valve for LVEDP and aortic valve gradient measurements. After pullback, the diagnostic catheter engaged Right Coronary Artery. It was unable to engage the LMCA and was switched out for a JL3.5 diagnostic catheter. Multiple orthogonal angiogram obtained and reviewed Hemostasis was achieved by application of TR band. Assessment: Luminal irregularities Post Operative Condition: Stable No significant blood loss Disposition: Floor Plan: The patient will be monitored in the recovery area. The above findings were discussed with the referring physician. Continue aggressive medical therapy and risk factor modification. Stevie Vasquez Interventional Cardiology
[2025-01-25] MEDS: SODIUM CHLORIDE 0.9% IV 1,000 ML 200 ML IV CONT (12:30)
--- NOTE | 2025-01-25 14:07 | PM.IMPN ---
Progress Note: A&P Assessment and Plan (1) Acute non-ST elevation myocardial infarction (NSTEMI): Code(s): I21.4 - Non-ST elevation (NSTEMI) myocardial infarction Status: Acute Assessment and Plan: Chest pain described as a sudden sharp onset on the left side of her chest that then eased into a dull aching lasting about 2 hours. Second episode of chest pain prompted patient patient to present to the ED. pain is nonradiating. No dyspnea, nausea. Risk factors for NSTEMI include HTN, hyperlipidemia -Initial EKG with sinus Ramone with incomplete RBBB and borderline ST-T abnormality in the anterior leads - CXR with no acute cardiopulmonary abnormality - Troponin: 0.064--> 0.083 - ASA - SL nitro PRN - cardiology consulted-> cardiac nitriles lab technician on 01/25 - started on heparin gtt -pravastatin - echo updated today, 01/24 shows EF 60 65%, mild enlargement of right and left atria, trace mitral regurg, no pulmonary hypertension -no previous stress test - telemetry monitoring For Cardiac cath (2) Stage 3b chronic kidney disease: Code(s): N18.32 - Chronic kidney disease, stage 3b Status: Acute Assessment and Plan: Creatinine about baseline at 1.66 and GFR 31. -patient will receive contrast dye on 01/25 in cardiac nitriles lab technician -monitor renal function after cardiac catheterization (3) Primary hypertension: Code(s): I10 - Essential (primary) hypertension Status: Acute Assessment and Plan: BP 158/86 on admit. Bradycardia in the 40s and 50s -continue lisinopril -avoid beta-blockers in setting of bradycardia (4) Mixed hyperlipidemia: Code(s): E78.2 - Mixed hyperlipidemia Status: Acute Assessment and Plan: Continue pravastatin -update lipid panel in a.m. Plan Diet: Heart healthy GI prophylaxis: Pantoprazole DVT prophylaxis: Heparin drip Code status: Full Subjective Date/time seen: 01/25/25 14:07 Interval history: COmfortable at bedside and was about to go to manager lab for cardiac cath at the time of this encounter today Review of Systems Review of Systems: All systems reviewed & are unremarkable except as noted in HPI and below Exam Narrative: GENERAL: non-toxic appearing, in no acute distress. HEAD: Normocephalic, atraumatic. EYES: PERRLA. Conjunctivae clear. NOSE: Normal no drainage. THROAT: Pharynx clear, no exudate. NECK: Trachea midline. No adenopathy, no masses. RESPIRATORY: Airway patent, respirations nonlabored. CTA. CARDIOVASCULAR: Bradycardia with regular rhythm. Peripheral pulses palpable BREASTS: Defer GASTROINTESTINAL: Abdomen is soft and nontender. No organomegaly. Bowel sounds normal in all quadrants. GENITOURINARY: Defer MUSCULOSKELETAL: Moves all extremities. No gross deformities. No calf tenderness. SKIN: Warm, dry, normal color. NEURO: A&O X4. Speech clear PSYCHIATRIC: Normal interaction Objective Data Vital Signs Vital Signs: Vital Signs - 24 hr 01/24/25 14:30 01/24/25 15:30 01/24/25 16:00 Temperature 98.1 F Pulse Rate 47 L 57 L 48 L Pulse Rate [Right Radial Palpation] Respiratory Rate 15 18 Blood Pressure 125/65 144/65 H Pulse Oximetry 100 99 Oxygen Delivery 01/24/25 18:00 01/24/25 20:00 01/24/25 20:00 Temperature 98.3 F Pulse Rate 82 53 L 54 L Pulse Rate [Right Radial Palpation] Respiratory Rate 14 14 Blood Pressure 105/56 L Pulse Oximetry 97 97 Oxygen Delivery Room Air 01/24/25 20:00 01/24/25 22:00 01/24/25 23:57 Temperature 98.1 F Pulse Rate 54 L 52 L 62 Pulse Rate [Right Radial Palpation] Respiratory Rate 14 Blood Pressure 104/52 L Pulse Oximetry 98 Oxygen Delivery 01/25/25 00:00 01/25/25 00:00 01/25/25 02:00 Temperature Pulse Rate 54 L 54 L 48 L Pulse Rate [Right Radial Palpation] Respiratory Rate 14 Blood Pressure Pulse Oximetry 98 Oxygen Delivery Room Air 01/25/25 03:45 01/25/25 03:45 01/25/25 04:00 Temperature 98.1 F Pulse Rate 46 L 46 L 47 L Pulse Rate [Right Radial Palpation] Respiratory Rate 14 12 Blood Pressure 103/53 L Pulse Oximetry 98 98 Oxygen Delivery Room Air 01/25/25 06:00 01/25/25 08:00 01/25/25 08:00 Temperature 97.6 F Pulse Rate 46 L 54 L 56 L Pulse Rate [Right Radial Palpation] Respiratory Rate 12 Blood Pressure 118/53 L Pulse Oximetry 100 Oxygen Delivery 01/25/25 08:00 01/25/25 10:00 01/25/25 12:00 Temperature Pulse Rate 50 L 52 L 52 L Pulse Rate [Right Radial Palpation] Respiratory Rate 14 Blood Pressure 94/51 L Pulse Oximetry 95 Oxygen Delivery Room Air 01/25/25 12:00 01/25/25 12:15 01/25/25 12:15 Temperature Pulse Rate 57 L Pulse Rate [Right Radial Palpation] 52 L 55 L Respiratory Rate 15 Blood Pressure 83/62 L Pulse Oximetry 96 Oxygen Delivery Room Air 01/25/25 12:30 01/25/25 12:30 01/25/25 12:45 Temperature Pulse Rate 55 L Pulse Rate [Right Radial Palpation] 52 L 51 L Respiratory Rate 12 Blood Pressure 85/54 L Pulse Oximetry 94 Oxygen Delivery Room Air 01/25/25 12:45 01/25/25 13:00 01/25/25 13:00 Temperature Pulse Rate 50 L 58 L Pulse Rate [Right Radial Palpation] 58 L Respiratory Rate 12 14 Blood Pressure 84/50 L 96/74 L Pulse Oximetry 94 95 Oxygen Delivery Room Air Room Air 01/25/25 13:15 01/25/25 13:15 01/25/25 13:30 Temperature Pulse Rate 56 L Pulse Rate [Right Radial Palpation] 56 L 55 L Respiratory Rate 16 Blood Pressure 91/79 L Pulse Oximetry 95 Oxygen Delivery Room Air 01/25/25 13:30 01/25/25 13:45 01/25/25 13:45 Temperature Pulse Rate 55 L 57 L Pulse Rate [Right Radial Palpation] 57 L Respiratory Rate 14 15 Blood Pressure 90/53 L 96/55 L Pulse Oximetry 95 95 Oxygen Delivery Room Air Room Air 01/25/25 14:00 01/25/25 14:00 Temperature Pulse Rate 57 L Pulse Rate [Right Radial Palpation] 57 L Respiratory Rate 16 Blood Pressure 81/51 L Pulse Oximetry 98 Oxygen Delivery Room Air Intake/Output Intake/Output: Intake & Output 01/22/25 01/23/25 01/24/25 01/25/25 23:59 23:59 23:59 23:59 Intake Total 492.8 290.3 Output Total 1600 Balance 492.8 -1309.7 Meds/Results Medications: Active Medications Generic Name Dose Route Start Last Admin Trade Name Freq PRN Reason Stop Dose Admin Acetaminophen 650 mg 01/24/25 14:06 Acetaminophen 325 Mg Tablet PO Q4H PRN Mild Pain (1-3) or Fever Aspirin 81 mg 01/25/25 09:00 Aspirin 81 Mg Enteric Tablet PO QAM [facility] Calcium Carbonate 500 mg 01/25/25 09:00 Calcium/Vitamin D 500 Mg/5 Mcg (200 I.U.) Tablet PO DAILY [facility] Heparin Sodium (Porcine) 4,000 units 01/24/25 13:49 Heparin Sodium 5,000 Units/Ml Vial IV PUSH PRN PRN aPTT less than 55 seconds Heparin Sodium (Porcine) 2,500 units 01/24/25 13:49 Heparin Sodium 5,000 Units/Ml Vial IV PUSH PRN PRN aPTT 55 - 70 seconds Heparin Sodium/Dextrose 25,000 units in 250 mls @ 8 mls/hr 01/24/25 13:50 01/25/25 03:17 Heparin Sodium/D5w 100 Units/Ml IV CONT 800 units/hr .Q24H [facility] 8 mls/hr Protocol Titration 800 UNITS/HR Sodium Chloride 1,000 mls @ 200 mls/hr 01/25/25 12:02 01/25/25 12:30 Normal Saline Iv IV CONT 01/25/25 17:01 200 mls/hr .Q5H ONE Administration Levothyroxine Sodium 50 mcg 01/25/25 06:30 01/25/25 05:52 Levothyroxine Sodium 50 Mcg Tablet PO 50 mcg DAILY@0630 [facility] Administration Lisinopril 10 mg 01/26/25 09:00 Lisinopril 10 Mg Tablet PO DAILY [facility] Ondansetron HCl 4 mg 01/24/25 14:06 Ondansetron Inj 4 Mg/2 Ml Vial IV PUSH Q4H PRN Nausea Pantoprazole Sodium 40 mg 01/25/25 09:00 Pantoprazole 40 Mg Tablet PO QAM [facility] Polyethylene Glycol 17 gm 01/25/25 09:00 Polyethylene Glycol 3350 17 Gm Powd.Pack PO DAILY [facility] Pravastatin Sodium 40 mg 01/25/25 09:00 Pravastatin Sodium 20 Mg Tablet PO DAILY [facility] Psyllium Hydrophilic Mucilloid 1 packet 01/25/25 09:00 Psyllium Powder Packet PO DAILY [facility] Radiology Results: ITS Impressions Chest X-Ray 01/24/25 12:58 Impression: No acute cardiopulmonary abnormality. Labs Labs: Laboratory Results - last 24 hr 01/24/25 01/24/25 01/25/25 16:03 19:57 02:51 WBC 6.6 5.6 RBC 3.82 L 3.69 L Hgb 11.2 L 11.0 L Hct 33.8 L 33.1 L MCV 88.5 89.7 MCH 29.3 29.8 MCHC 33.1 33.2 RDW 13.4 13.2 Plt Count 253 251 MPV 9.8 9.6 Immature Gran % (Auto) 0.3 0.2 Neut % (Auto) 52.3 42.5 L Lymph % (Auto) 39.6 47.2 H [place] % (Auto) 6.1 7.4 Eos % (Auto) 1.1 2.0 Baso % (Auto) 0.6 0.7 Lymph # (Auto) 2.60 2.66 [place] # (Auto) 0.4 0.4 Eos # (Auto) 0.1 0.1 Baso # (Auto) 0.0 0.0 Abs Immat Gran (auto) 0.02 0.01 Absolute Neuts (auto) 3.4 2.4 Absolute Nucleated RBC 0.000 0.000 Nucleated RBC % 0.0 0.0 PT 14.6 INR 1.1 APTT 78.6 H 98.5 H Sodium 129 L Potassium 4.2 Chloride 101 Carbon Dioxide 23 Anion Gap 5 BUN 17 Creatinine 1.66 H Estim Creat Clear Calc 29 Estimated GFR 31 L Glucose 90 Calcium 8.7 Troponin I 0.093 H* D 0.083 H* Triglycerides 108 Cholesterol 165 LDL Cholesterol Direct 97 HDL Direct 36 Quality VTE Prophylaxis VTE prophylaxis: pharmacologic ordered
--- NOTE | 2025-01-25 14:54 | SUR.PHASEII ---
This RN contacted MD Vasquez about pt's post cath BP running in the 80s/50s and MD Vasquez states no new orders at this time. MD Vasquez states to d/c heparin and no additional changes to meds.
[2025-01-26] VITALS: BP 139/59; PULSE 54; PULSE 6; RESP 12; TEMP 36.7; O2SAT 99
[2025-01-26 02:00] VITALS: PULSE 50
[2025-01-26 04:00] VITALS: BP 126/66; PULSE 57; RESP 14; TEMP 36.7; O2SAT 98
[2025-01-26 05:31] LABS: Hematocrit 34.4 % (37.0-47.0); Hemoglobin 11.0 g/dL (12.0-15.0); Immature Granulocyte Percent A 0.2 % (0-0.5); Lymphocytes Absolute Auto 2.24 K/mm3 (0.9-3.2); Mean Corpuscular HGB Conc 32.0 g/dl (32-36); Mean Corpuscular Hemoglobin 29.7 pg (26-34); Mean Corpuscular Volume 93.0 fl (80-100); Nucleated Red Blood Cells Absolute Auto 0.000 K/mm3 (0.0-0.012); Nucleated Red Blood Cells Perc 0.0 % (0.0-0.2); Platelet Count Result 267 k/mm3 (150-375); Red Blood Count 3.70 M/mm3 (4.2-5.4); White Blood Count 5.1 K/mm3 (4.5-10.0)
[2025-01-26 05:37] LABS: Hemoglobin A1C 5.5 % (<5.7)
[2025-01-26 05:39] LABS: Partial Thromboplastin Time 34.1 Seconds (22.3-36.8)
[2025-01-26 05:42] LABS: Alanine Aminotransferase 19 U/L (6-35); Albumin Level 3.4 g/dL (3.5-5.1); Alkaline Phosphatase 70 U/L (38-126); Anion Gap 6 mmol/L (4-12); Aspartate Amino Transferase 34 U/L (14-36); Bilirubin,Total 0.4 mg/dL (0.2-1.3); Blood Urea Nitrogen 17 mg/dL (7-17); Calcium 8.6 mg/dL (8.4-10.2); Carbon Dioxide 22 mmol/L (22-30); Chloride 105 mmol/L (98-107); Cholesterol 173 mg/dL (0-200); Estimated CRCL calculation 29 ml/min; Estimated Glomerular Filt Rate 31; Glucose 84 mg/dL (65-110); HDL Direct 34 mg/dL; Magnesium 2.1 mg/dL (1.6-2.3); Potassium 4.5 mmol/L (3.4-5.0); Sodium 133 mmol/L (137-145); Total Protein 5.8 g/dL (6.3-8.2); Triglycerides 138 mg/dL (<150)
[2025-01-26] MEDS: LEVOTHYROXINE SODIUM 50 MCG TABLET PO (05:51)
[2025-01-26 06:00] VITALS: PULSE 48
--- NOTE | 2025-01-26 07:33 | P.PNCA_ITS ---
Progress Note: A&P Assessment and Plan (1) Chest pain: Code(s): R07.9 - Chest pain, unspecified Status: Acute Assessment and Plan: Could be due to [place] or supply/demand from low BP. Troponin peaked at .093. 01/25/[address] Vasquez shows minimal luminal irregularities of LCx only. On aspirin, Pravastatin. Hold off on beta sourav due to HR 47 bpm. May d/c home from cardiology standpoint and f/u with me in 1-2 weeks. (2) Primary hypertension: Code(s): I10 - Essential (primary) hypertension Status: Acute Assessment and Plan: Relative hypotension in afternoon hours yesterday. Stop Lisinopril. Monitor BP at home and let us know if >140 SBP. (3) Mixed hyperlipidemia: Code(s): E78.2 - Mixed hyperlipidemia Status: Acute Assessment and Plan: On Pravastatin. Subjective Date/time seen: 01/26/25 07:33 Interval history: No more chest pains. Denies sob. No pain in right wrist access site. Exam Const: General: cooperative, healthy appearing and comfortable Orientation/consciousness: oriented to person, oriented to place and oriented to time Resp: Auscultation: clear to auscultation bilaterally, no crackles, no rales, no rhonchi and no wheezes Cardio: Rate: regular rate Rhythm: regular rhythm Heart sounds: no murmurs Peripheral pulses: dorsalis pedis present Neuro: General: oriented to person, oriented to place and oriented to time Extrem: Right lower extremity: no edema Left lower extremity: no edema Objective Data Vital Signs Vital Signs: Vital Signs - 24 hr 01/25/25 08:00 01/25/25 08:00 01/25/25 08:00 Temperature 97.6 F Pulse Rate 54 L 56 L 50 L Pulse Rate [Right Radial Palpation] Respiratory Rate 12 Blood Pressure 118/53 L Pulse Oximetry 100 Oxygen Delivery 01/25/25 10:00 01/25/25 12:00 01/25/25 12:00 Temperature Pulse Rate 52 L 52 L Pulse Rate [Right Radial Palpation] 52 L Respiratory Rate 14 Blood Pressure 94/51 L Pulse Oximetry 95 Oxygen Delivery Room Air 01/25/25 12:15 01/25/25 12:15 01/25/25 12:30 Temperature Pulse Rate 57 L Pulse Rate [Right Radial Palpation] 55 L 52 L Respiratory Rate 15 Blood Pressure 83/62 L Pulse Oximetry 96 Oxygen Delivery Room Air 01/25/25 12:30 01/25/25 12:45 01/25/25 12:45 Temperature Pulse Rate 55 L 50 L Pulse Rate [Right Radial Palpation] 51 L Respiratory Rate 12 12 Blood Pressure 85/54 L 84/50 L Pulse Oximetry 94 94 Oxygen Delivery Room Air Room Air 01/25/25 13:00 01/25/25 13:00 01/25/25 13:15 Temperature Pulse Rate 58 L Pulse Rate [Right Radial Palpation] 58 L 56 L Respiratory Rate 14 Blood Pressure 96/74 L Pulse Oximetry 95 Oxygen Delivery Room Air 01/25/25 13:15 01/25/25 13:30 01/25/25 13:30 Temperature Pulse Rate 56 L 55 L Pulse Rate [Right Radial Palpation] 55 L Respiratory Rate 16 14 Blood Pressure 91/79 L 90/53 L Pulse Oximetry 95 95 Oxygen Delivery Room Air Room Air 01/25/25 13:45 01/25/25 13:45 01/25/25 14:00 Temperature Pulse Rate 57 L Pulse Rate [Right Radial Palpation] 57 L 55 L Respiratory Rate 15 Blood Pressure 96/55 L Pulse Oximetry 95 Oxygen Delivery Room Air 01/25/25 14:00 01/25/25 14:15 01/25/25 14:15 Temperature Pulse Rate 57 L 54 L Pulse Rate [Right Radial Palpation] 54 L Respiratory Rate 16 15 Blood Pressure 81/51 L 81/53 L Pulse Oximetry 98 96 Oxygen Delivery Room Air Room Air 01/25/25 14:30 01/25/25 14:30 01/25/25 14:45 Temperature Pulse Rate 54 L Pulse Rate [Right Radial Palpation] 54 L 58 L Respiratory Rate 14 Blood Pressure 86/45 L Pulse Oximetry 96 Oxygen Delivery Room Air 01/25/25 14:45 01/25/25 15:00 01/25/25 15:00 Temperature Pulse Rate 58 L 56 L Pulse Rate [Right Radial Palpation] 56 L Respiratory Rate 16 15 Blood Pressure 83/54 L 99/50 L Pulse Oximetry 97 99 Oxygen Delivery Room Air Room Air 01/25/25 15:15 01/25/25 15:15 01/25/25 15:30 Temperature Pulse Rate 62 Pulse Rate [Right Radial Palpation] 62 58 L Respiratory Rate 16 Blood Pressure 87/61 L Pulse Oximetry 99 Oxygen Delivery Room Air 01/25/25 15:30 01/25/25 15:45 01/25/25 15:45 Temperature Pulse Rate 58 L 56 L Pulse Rate [Right Radial Palpation] 56 L Respiratory Rate 15 16 Blood Pressure 96/70 L 113/85 Pulse Oximetry 98 98 Oxygen Delivery Room Air Room Air 01/25/25 16:00 01/25/25 16:00 01/25/25 16:15 Temperature Pulse Rate 59 L Pulse Rate [Right Radial Palpation] 59 L 57 L Respiratory Rate 15 Blood Pressure 85/60 L Pulse Oximetry 99 Oxygen Delivery Room Air 01/25/25 16:15 01/25/25 16:30 01/25/25 16:30 Temperature Pulse Rate 57 L 56 L Pulse Rate [Right Radial Palpation] 56 L Respiratory Rate 15 16 Blood Pressure 84/52 L 83/54 L Pulse Oximetry 99 98 Oxygen Delivery Room Air Room Air 01/25/25 16:48 01/25/25 17:48 01/25/25 18:00 Temperature Pulse Rate 64 Pulse Rate [Right Radial Palpation] 58 L 64 Respiratory Rate Blood Pressure Pulse Oximetry Oxygen Delivery 01/25/25 20:00 01/25/25 20:00 01/25/25 20:00 Temperature 97.9 F Pulse Rate 60 63 Pulse Rate [Right Radial Palpation] Respiratory Rate 12 Blood Pressure 128/62 Pulse Oximetry 99 Oxygen Delivery Room Air 01/25/25 22:00 01/26/25 00:00 01/26/25 00:00 Temperature 98.1 F Pulse Rate 55 L 6 L Pulse Rate [Right Radial Palpation] Respiratory Rate 12 Blood Pressure 139/59 L Pulse Oximetry 99 Oxygen Delivery Room Air 01/26/25 00:00 01/26/25 02:00 01/26/25 04:00 Temperature Pulse Rate 54 L 50 L Pulse Rate [Right Radial Palpation] Respiratory Rate Blood Pressure Pulse Oximetry Oxygen Delivery Room Air 01/26/25 04:00 01/26/25 04:00 01/26/25 06:00 Temperature 98.0 F Pulse Rate 57 L 57 L 48 L Pulse Rate [Right Radial Palpation] Respiratory Rate 14 Blood Pressure 126/66 Pulse Oximetry 98 Oxygen Delivery Intake/Output Intake/Output: Intake & Output 01/23/25 01/24/25 01/25/25 01/26/25 23:59 23:59 23:59 23:59 Intake Total 492.8 730.3 300 Output Total 2250 1000 Balance 492.8 -1519.7 -700 Meds/Results Medications: Active Medications Generic Name Dose Route Start Last Admin Trade Name Freq PRN Reason Stop Dose Admin Acetaminophen 650 mg 01/24/25 14:06 Acetaminophen 325 Mg Tablet PO Q4H PRN Mild Pain (1-3) or Fever Aspirin 81 mg 01/25/25 09:00 01/25/25 15:49 Aspirin 81 Mg Enteric Tablet PO Not Given QAM [facility] Calcium Carbonate 500 mg 01/25/25 09:00 01/25/25 15:49 Calcium/Vitamin D 500 Mg/5 Mcg (200 I.U.) Tablet PO Not Given DAILY [facility] Levothyroxine Sodium 50 mcg 01/25/25 06:30 01/26/25 05:51 Levothyroxine Sodium 50 Mcg Tablet PO 50 mcg DAILY@0630 [facility] Administration Ondansetron HCl 4 mg 01/24/25 14:06 Ondansetron Inj 4 Mg/2 Ml Vial IV PUSH Q4H PRN Nausea Pantoprazole Sodium 40 mg 01/25/25 09:00 01/25/25 15:50 Pantoprazole 40 Mg Tablet PO Not Given QAM [facility] Polyethylene Glycol 17 gm 01/25/25 09:00 01/25/25 15:50 Polyethylene Glycol 3350 17 Gm Powd.Pack PO Not Given DAILY [facility] Pravastatin Sodium 40 mg 01/25/25 09:00 01/25/25 15:50 Pravastatin Sodium 20 Mg Tablet PO Not Given DAILY [facility] Psyllium Hydrophilic Mucilloid 1 packet 01/25/25 09:00 01/25/25 15:50 Psyllium Powder Packet PO Not Given DAILY [facility] Radiology Results: ITS Impressions Chest X-Ray 01/24/25 12:58 Impression: No acute cardiopulmonary abnormality. Labs Labs: Laboratory Results - last 24 hr 01/26/25 04:13 WBC 5.1 RBC 3.70 L Hgb 11.0 L Hct 34.4 L MCV 93.0 MCH 29.7 MCHC 32.0 RDW 13.6 Plt Count 267 MPV 10.1 Immature Gran % (Auto) 0.2 Neut % (Auto) 44.4 L Lymph % (Auto) 43.8 [place] % (Auto) 8.8 H Eos % (Auto) 2.0 Baso % (Auto) 0.8 Lymph # (Auto) 2.24 [place] # (Auto) 0.5 Eos # (Auto) 0.1 Baso # (Auto) 0.0 Abs Immat Gran (auto) 0.01 Absolute Neuts (auto) 2.3 Absolute Nucleated RBC 0.000 Nucleated RBC % 0.0 APTT 34.1 Sodium 133 L Potassium 4.5 Chloride 105 Carbon Dioxide 22 Anion Gap 6 BUN 17 Creatinine 1.63 H Estim Creat Clear Calc 29 Estimated GFR 31 L Glucose 84 Hemoglobin A1c 5.5 Calcium 8.6 Magnesium 2.1 Total Bilirubin 0.4 AST 34 ALT 19 Alkaline Phosphatase 70 Total Protein 5.8 L Albumin 3.4 L Triglycerides 138 Cholesterol 173 LDL Cholesterol Direct 92 HDL Direct 34
[2025-01-26 08:00] VITALS: BP 114/66; PULSE 59; PULSE 64; RESP 16; TEMP 36.8; O2SAT 98
[2025-01-26] MEDS: PSYLLIUM POWDER PACKET 1 PACKET PO (08:13)
[2025-01-26] MEDS: PRAVASTATIN SODIUM 20 MG TABLET 40 MG PO (08:13)
[2025-01-26] MEDS: ASPIRIN 81 MG ENTERIC TABLET PO (08:13)
[2025-01-26] MEDS: PANTOPRAZOLE 40 MG TABLET PO (08:14)
[2025-01-26] MEDS: CALCIUM/VITAMIN D 500 MG/5 MCG (200 I.U.) TABLET PO (08:14)
[2025-01-26 10:00] VITALS: PULSE 49
--- NOTE | 2025-01-26 11:36 | P.DS_ITS ---
DS: Admitting Diagnosis Discharge Date 01/26/2025 Admitting Diagnosis Chest pain DS: Discharge Diagnosis Discharge Diagnosis (1) Acute non-ST elevation myocardial infarction (NSTEMI): Code(s): I21.4 - Non-ST elevation (NSTEMI) myocardial infarction Status: Acute DS: Summary Hospital Course Hospital Course: HPI per Admitting provider: 69-year-old female with a past medical history of hypothyroidism, GERD, hyperlipidemia, HTN, CKD, mitral valve prolapse presents to the ED on 01/24/2025 with complaints of chest pain. Patient states her chest pain started around midnight and lasted about 2 hours. She states she had a hard time going to sleep due to the pain and described it as a sudden sharp onset on the left side of her chest that then eased into a dull aching feeling the remainder of the time. It resolved on its own so she did not think much of it and went to sleep. Today around 9:30 a.m. she was shopping and had the same pain that lasts about an hour this time before she came to the ED. pain is nonradiating. No dyspnea, nausea. She then developed a headache with aura that feels like her normal migraines. Her chest pain had resolved by the time she arrived to the ED. She denies having these symptoms in the past. Has seen Dr. Michael with cardiology in the past for valvular disease but has not seen him for about 3 years. Arrival to the ED, patient is hypertensive at 158/86, and bradycardic with a heart rate of 59. Not tachypneic and satting 100% on room air. Lab significant for slight hyponatremia for, CKD around baseline Initial troponin 0.064. Initial EKG with sinus Ramone with incomplete RBBB and borderline ST-T ab normality in the anterior leads Chest x-ray with no acute cardiopulmonary abnormality Cardiology was consulted adn Troponin kept escalating, thus patient was taken to Cardiac cath and no significant stenosis noted. Recommended Aspirin and continuing Pravastatin. Patient was started on Metoprolol and was withdrawn due to Bradycardia, and Lisinopril also stopped due to Hypotension. BP today off Metoprolol and Lisinopril, 114/66, HR 49. Patient will follow up with PCP in 3-5 days F/u with cardiology as instructed Time Spent with Patient Time attestation: Total time spent providing and/or coordinating discharge services: DS: Data Data Completed and Pending Labs on day of discharge: Labs from last 24 hours 01/26/25 04:13 WBC 5.1 RBC 3.70 L Hgb 11.0 L Hct 34.4 L MCV 93.0 MCH 29.7 MCHC 32.0 RDW 13.6 Plt Count 267 MPV 10.1 Immature Gran % (Auto) 0.2 Neut % (Auto) 44.4 L Lymph % (Auto) 43.8 [place] % (Auto) 8.8 H Eos % (Auto) 2.0 Baso % (Auto) 0.8 Lymph # (Auto) 2.24 [place] # (Auto) 0.5 Eos # (Auto) 0.1 Baso # (Auto) 0.0 Abs Immat Gran (auto) 0.01 Absolute Neuts (auto) 2.3 Absolute Nucleated RBC 0.000 Nucleated RBC % 0.0 APTT 34.1 Sodium 133 L Potassium 4.5 Chloride 105 Carbon Dioxide 22 Anion Gap 6 BUN 17 Creatinine 1.63 H Estim Creat Clear Calc 29 Estimated GFR 31 L Glucose 84 Hemoglobin A1c 5.5 Calcium 8.6 Magnesium 2.1 Total Bilirubin 0.4 AST 34 ALT 19 Alkaline Phosphatase 70 Total Protein 5.8 L Albumin 3.4 L Triglycerides 138 Cholesterol 173 LDL Cholesterol Direct 92 HDL Direct 34 Discharge Plan Discharge Attending physician on discharge: [facility] [address] Consulting providers: Curt Michael; Alex Rodriguez Discharging Clinician: [address] Anticipated Discharge Date/Time: 01/26/25 11:31 Patient Disposition: Home Activity: as tolerated Diet: heart healthy Discharge Instructions: [facility] [id number] [facility] [address] [place] [address] DISCHARGE INSTRUCTIONS - POST RADIAL CATH Activity 1. No driving for 24 hours. 2. No lifting more than 5 lb with affected arm for 1 week. 3. May shower ( tomorrow) but no excessive soaking of affected hand/wrist (such as washing dishes), swimming pool or hot tub for 5 days. Wound Care 1. May remove arm board in the morning. 2. May remove gauze dressing in the morning and put Band-Aid over affected radial site. Keep site covered for 3 days. 3. Observe for redness, drainage, swelling or bleeding. Medications DO NOT STOP YOUR MEDICATIONS ONLY YOUR BREAD WRAPPING MACHINE FEEDER CAN STOP THE FOLLOWING MEDICATIONS - PLEASE CALL THE OFFICE WITH QUESTIONS. *Aspirin *Ticagrelor (Brilinta) *Atorvastatin *Lisinopril or ARB *Metoprolol tartrate or succinate *Clopidogrel (Plavix) *Prasugrel (Effient) Important Reminders 1. Keep your stent card in your wallet at all times 2. Follow a heart healthy diet paying extra attention to cholesterol and fats. 3. Stay hydrated. 4. If you have chest pain unrelieved by rest or nitroglycerin (if prescribed) call 911 immediately. 5. If you miss one dose of Brilinta (if prescribed) take a tablet at the next time due. If you miss 2 doses take a tablet when you remember and resume at the next time due. *For any other questions please call the office at [phone]. Office hours are 8AM 4:30PM Wednesday through Wednesday. Patient Instructions: Antibiotic Form Patient Language: Cambodian Stand Alone Forms: General Discharge Information Follow-up/Referrals: Curt Michael DO [Physician, Cardiology] Referral Note: F/u with Cardiology as instructed Irwin Reyes MD [Primary Care Provider, Family Practice] Referral Note: F/u with PCP in 3-5 days Discharge Medications: New aspirin 81 mg Tablet,Delayed Release (Dr/Ec) 81 mg PO QAM 30 Days Qty: 30 1RF Continued polyethylene glycol 3350 [Miralax] 17 gram powder in packet 17 g PO DAILY Metamucil (sugar) Powder 1 tbsp PO DAILY calcium carbonate-vitamin D3 600 mg-20 mcg (800 unit) tablet 1 tablet PO DAILY pravastatin 40 mg tablet 40 mg PO DAILY Qty: 90 3RF omeprazole 20 mg capsule,delayed release(DR/EC) 20 mg PO DAILY Qty: 90 1RF levothyroxine 50 mcg tablet 50 mcg PO DAILY Qty: 90 3RF Discontinued lisinopril 10 mg tablet 10 mg PO DAILY Qty: 90 3RF Rx Instructions: take 1 tablet by oral route every day Date of admission: 01/24/25 14:06 Primary Care Provider: Irwin Reyes Admitting Provider: Steven Dupont Attending physician on admission: Steven Dupont Condition: Stable
--- NOTE | 2025-01-26 12:07 | PC.NURSE ---
Reviewed discharge instructions with patient and family including medications and next dose. Verbalizes understanding at this time. IV access in removed intact and lunchroom monitor removed at this time. No acute distress noted at this time. Patient will be discharged home in personal vehicle.
== END 2025-01-26 12:35 | disposition home or self-care (01) | DRG 281 ==
LOC: ANHED 13:30 → ANHIMU 14:52
PROVIDERS: Internal Medicine; Nurse Practitioner; Nurse Practitioner Adult Health; Admitting Provider Family Medicine; Emergency Provider Student in an Organized Health Care Education/Training Program; PCP Family Medicine Adolescent Medicine; Visit Provider Internal Medicine
PROC: 4A023N7 Measurement of Cardiac Sampling and Pressure, Left Heart, Percutaneous Approach (ICD-10-PCS; CPT 93452; principal; 2025-01-25 11:00)
DX: I21.4 Non-ST elevation (NSTEMI) myocardial infarction (principal); E87.1 Hypo-osmolality and hyponatremia; E78.2 Mixed hyperlipidemia; E03.9 Hypothyroidism, unspecified; I12.9 Hypertensive chronic kidney disease with stage 1 through stage 4 chronic kidney disease, or unspecified chronic kidney disease; K58.9 Irritable bowel syndrome, unspecified; K21.9 Gastro-esophageal reflux disease without esophagitis; N18.32 Chronic kidney disease, stage 3b; Z87.891 Personal history of nicotine dependence; Z85.828 Personal history of other malignant neoplasm of skin
CPT/HCPCS: 36415; 71046; 80048; 80053; 80061; 83036; 83690; 83735; 84484; 85025; 85610; 85730; 93005; 93306; 93458; 99291; A9270; C1769; C1887; C1894; J1644; J2003; J2250; J2305; J3010; J7030; J7040; Q9957